=== PATIENT | female | born 1960 | race Caucasian/White ===

== ENCOUNTER → 2017-04-23 | Outpatient (CLI) | payer MEDICARE, OTHER ==
[2017-04-23 09:30] LABS: ALANINE AMINOTRANSFERASE 40 U/L (9-52); ALBUMIN 3.8 g/dL (3.5-5.0); ALKALINE PHOSPHATASE 72 U/L (38-126); ASPARTATE AMINO TRANSFERASE 18 U/L (14-36); BILIRUBIN,DIRECT 0.3 mg/dL (0.0-0.4); BILIRUBIN,TOTAL 0.5 mg/dL (0.2-1.3); CHOLESTEROL 106.41 mg/dL (0-200); Direct HDL 29 mg/dL (>40); TOTAL PROTEIN 6.3 g/dL (6.3-8.2); TRIGLYCERIDES 121 mg/dL (<150)
[2017-04-23 09:42] LABS: DIRECT LDL 41 mg/dL (<100)
== END ==
LOC: OD 08:09
PROVIDERS: ATTEND Specialist
DX: I10 Essential (primary) hypertension (principal); R07.1 Chest pain on breathing; R42 Dizziness and giddiness; R60.9 Edema, unspecified; E11.9 Type 2 diabetes mellitus without complications; E78.5 Hyperlipidemia, unspecified; E66.9 Obesity, unspecified; E03.9 Hypothyroidism, unspecified; G47.30 Sleep apnea, unspecified; K21.9 Gastro-esophageal reflux disease without esophagitis; R94.31 Abnormal electrocardiogram [ECG] [EKG]; Z79.899 Other long term (current) drug therapy
CPT/HCPCS: 36415; 80061; 80076

== ENCOUNTER → 2018-01-31 | Outpatient (CLI) | payer MEDICARE, OTHER ==
--- NOTE | 2018-01-31 16:22 | RADIOLOGY REPORT (SQ) ---
EXAM DESCRIPTION: CT CHEST WITH COMPLETED DATE/TIME: 01/31/2018 3:33 pm REASON FOR STUDY: R07.9 CHEST PAIN R10.9 UNSPECIFIED ABDOMINAL PAIN R07.9 CHEST PAIN, UNSPECIFIED R 10.9 UNSPECIFIED ABDOMINAL PAIN COMPARISON: 07/27/2016 TECHNIQUE: CT scan of the chest performed using helical scanning technique with dynamic intravenous contrast injection. Images reviewed with lung, soft tissue and bone windows. Reconstructed coronal and sagittal MPR images reviewed. All images stored on PACS. All CT scanners at this facility use dose modulation, iterative reconstruction, and/or weight based d osing when appropriate to reduce radiation dose to as low as reasonably achievable (ALARA). [facility]: Dose Right [facility]: CareDose [facility]: Dose Right [facility]: Teradose 4D [facility]: [employer] CONTRAST TYPE AND DOSE: See separate report of the same date. RENAL FUNCTION: See separate report of the same date. RADIATION DOSE: . LIMITATIONS: None. FINDINGS: LUNGS AND PLEURA: No opacities, nodules, masses. No pneumothorax. No effusions. HILAR AND MEDIASTINAL STRUCTURES: No identified masses or abnormal nodes. HEART AND VASCULAR STRUCTURES: No aneurysm or dissection. No central pulmonary emboli. No pericardi al effusion. HARDWARE: None in the chest. UPPER ABDOMEN: See separate report of the CT of the abdomen. THYROID AND OTHER SOFT TISSUES: No masses. No adenopathy. BONES: No significant finding. OTHER: Right-sided port with tip in the SVC. IMPRESSION: No acute findings in the chest. TECHNICAL DOCUMENTATION: JOB ID: [id number] Quality ID # [id number]: Final reports with documentation of one or more dose reduction techniques (e.g., Au tomated exposure control, adjustment of the mA and/or kV according to patient size, use of iterative reconstruction technique) 2010 [employer]- All Rights Reserved Reading location - IP/workstation name: [email or web address]
--- NOTE | 2018-01-31 16:30 | RADIOLOGY REPORT (SQ) ---
EXAM DESCRIPTION: CT ABD/PELVIS WITH IV ORAL COMPLETED DATE/TIME: 01/31/2018 3:33 pm REASON FOR STUDY: R07.9 CHEST PAIN R07.9 CHEST PAIN, UNSPECIFIED R10.9 UNSPECIFIED ABDOMINAL PAIN COMPARISON: 07/02/2015 TECHNIQUE: CT scan of the abdomen and pelvis performed with intravenous and oral contrast using bj gregoria scanning technique with dynamic intravenous contrast injection. Images reviewed with lung, soft t issue, and bone windows. Reconstructed coronal and sagittal MPR images reviewed. Delayed images for e valuation of the urinary system also acquired. All images stored on PACS. All CT scanners at this facility use dose modulation, iterative reconstruction, and/or weight based d osing when appropriate to reduce radiation dose to as low as reasonably achievable (ALARA). [facility]: Dose Right [facility]: CareDose [facility]: Dose Right [facility]: Teradose 4D [facility]: [employer] CONTRAST TYPE AND DOSE: contrast/concentration: Isovue 370.00 mg/ml; Total Contrast Delivered: 100.0 ml; Total Saline Delivered: 72.0 ml RENAL FUNCTION: BUN 22 creatinine 0.9 RADIATION DOSE: CT Rad equipment meets quality standard of care and radiation dose reduction techniq ues were employed. CTDIvol: 13.5 - 23.6 mGy. DLP: 2915 mGy-cm. . LIMITATIONS: None. FINDINGS: LOWER CHEST: See separate report of the CT of the chest. LIVER: Normal size. No masses. No dilated ducts. SPLEEN: Surgically absent. PANCREAS: Partial pancreatectomy. GALLBLADDER: No identified stones by CT criteria. No inflammatory changes to suggest cholecystitis. ADRENAL GLANDS: Left adrenalectomy. Stable soft tissue in the surgical bed. RIGHT KIDNEY AND URETER: No solid masses. No significant calcifications. No hydronephrosis or hyd roureter. LEFT KIDNEY AND URETER: Surgically absent. AORTA AND VESSELS: No aneurysm. RETROPERITONEUM: No retroperitoneal adenopathy, hemorrhage or masses. BOWEL AND PERITONEAL CAVITY: No obstruction. No visualized masses. No free fluid. No inflammatory ch anges or thickening of bowel wall. APPENDIX: Normal. PELVIS: No significant masses. Normal bladder. No free fluid. ABDOMINAL WALL: Ventral hernia containing nondilated bowel. BONES: No acute findings. OTHER: No other significant finding. IMPRESSION: Stable appearance of the abdomen and pelvis. No evidence of local recurrence or metasta tic disease. TECHNICAL DOCUMENTATION: JOB ID: [id number] Quality ID # [id number]: Final reports with documentation of one or more dose reduction techniques (e.g., Au tomated exposure control, adjustment of the mA and/or kV according to patient size, use of iterative reconstruction technique) 2010 [employer]- All Rights Reserved Reading location - IP/workstation name: [email or web address]
== END ==
LOC: RAD 15:38
PROVIDERS: ATTEND Internal Medicine Medical Oncology
DX: R07.9 Chest pain, unspecified (principal); R10.9 Unspecified abdominal pain
CPT/HCPCS: 71260; 74177

== ENCOUNTER → 2018-02-04 | Outpatient (CLI) | payer MEDICARE, OTHER ==
--- NOTE | 2018-02-04 15:18 | RADIOLOGY REPORT (SQ) ---
EXAM DESCRIPTION: NM WHOLE BODY BONE SCAN COMPLETED DATE/TIME: 02/04/2018 2:49 pm REASON FOR STUDY: CHEST PAIN, UNSPECIFIED R07.9 CHEST PAIN, UNSPECIFIED COMPARISON: 07/05/2015 RADIONUCLIDE AND DOSE: 16.9 millicuries Tc99m MDP. The route of agent administration: Intravenous. ADDITIONAL DRUGS AND DOSES: None. TECHNIQUE: Routine delayed images at 3 hour post radionuclide injection acquired of the bony skeleto n including anterior and posterior whole-body projections and additional focused images as needed. LIMITATIONS: None. FINDINGS: BONES: There is increased uptake T9 vertebral body posteriorly. This corresponds to the l ytic lesion which was seen as far back as June 2015 when the bone scan was normal. No other signif icant uptake. KIDNEYS: Symmetric excretion without obstruction. OTHER: No other significant finding. IMPRESSION: Increased uptake within a chronic T9 lytic lesion previously negative on bone scan. Unc ertain if this represents a new metastasis versus pathologic microfracture. There has been very ning le morphologic change since 2014. COMMENT: Quality measure 147: Current bone scan is compared with any available plain radiographs, p rior bone scans, and CT/MRI. TECHNICAL DOCUMENTATION: JOB ID: [id number] [employer]- All Rights Reserved Reading location - IP/workstation name: [email or web address]
== END ==
LOC: RAD 07:59
PROVIDERS: ATTEND Internal Medicine Medical Oncology
DX: R07.9 Chest pain, unspecified (principal); R10.9 Unspecified abdominal pain
CPT/HCPCS: 78306; A9561; Q9969

== ENCOUNTER → 2018-02-08 | Outpatient (CLI) | payer MEDICARE, OTHER ==
--- NOTE | 2018-02-08 11:33 | WOMENS IMAGING REPORT ---
EXAM DESCRIPTION: BONE DENSITY HIP/SPINE COMPLETED DATE/TIME: 02/08/2018 10:20 am REASON FOR STUDY: AGE-RELATED OSTEOPOROSIS; M81.0 M81.0 AGE-RELATED OSTEOPOROSIS W/O CURRENT PATHOL OGICAL FRAC COMPARISON: 05/10/2009. TECHNIQUE: Dual-Energy X-ray Absorptiometry (DEXA) of the AP Spine and Hip. LIMITATIONS: None. FINDINGS: LUMBAR SPINE: The bone mineral density (BMD) measured from L1-L4 in the AP projection correlates with a T-score of -1.6, which is osteopenia as defined by the World Health Organization. HIP: The bone mineral density (BMD) measured in the left hip correlates with a T-score of -1.0, which is o steopenia as defined by the World Health Organization. IMPRESSION: 1. LUMBAR SPINE: OSTEOPENIA. 2. HIP: OSTEOPENIA. COMMENT: The World Health Organization defines low BMD as follows: T-score: Normal: Greater than -1.0 Osteopenia: Between -1.0 and -2.5 Osteoporosis: Less than -2.5 without fractures Established osteoporosis: Less than -2.5 with fractures In general, you may wish to consider: Diagnosis Treatment Follow-up DEXA Normal BMD Prevention 2-3 years Osteopenia Prevention/Therapy 1-2 years Osteoporosis Therapy Yearly TECHNICAL DOCUMENTATION: JOB ID: [id number]- All Rights Reserved Reading location - IP/workstation name: [email or web address]-RR
== END ==
LOC: WI 10:01
PROVIDERS: ATTEND Internal Medicine Medical Oncology
DX: M81.0 Age-related osteoporosis without current pathological fracture (principal)
CPT/HCPCS: 77080

== ENCOUNTER → 2018-02-22 | Outpatient (CLI) | payer MEDICARE, OTHER ==
--- NOTE | 2018-02-22 09:53 | RADIOLOGY REPORT (SQ) ---
EXAM DESCRIPTION: MRI THORACIC SPINE WITHOUT COMPLETED DATE/TIME: 02/22/2018 9:00 am REASON FOR STUDY: OTHER FX OF UNSPEC THORACIC VERTEBRA (S22.008S) S22.008S OTHER FRACTURE OF UNSPEC IFIED THORACIC VERTEBRA, SE COMPARISON: 02/04/[address] chest 01/31/2018. TECHNIQUE: Sagittal and Axial imaging includes T1, T2, STIR and gradient echo sequences. LIMITATIONS: None. FINDINGS: ALIGNMENT: Normal. VERTEBRAE: Abnormal T9 vertebral body, see below. Maintained vertebral heights throughout. No compr ession fracture, including at T9. BONE MARROW: Abnormal signal at T9. T2 sequences show mild edema. T1 sequences show expansile lesio ns within the vertebral body and likely extending into the right pedicle. Minimal endplate reactive marrow edema along the T7-8 degenerated disc. Numerous additional Schmorl's nodes are present, most of which show no edema. Slight edema in an upper T11 Schmorl's node. HARDWARE: None in the spine. CORD: Normal in size and signal intensity. SOFT TISSUES: No soft tissue masses. THORACIC DISCS T1-T12: Multilevel disc disease, height loss and diminished signal with non acute appe aring Schmorl's nodes generally. Small protrusion at T7-8 without mass effect on the cord. Mild dis c osteophyte complex at T11-12 without cord compression. No significant central or foraminal comprom ise. LOWER CERVICAL: Incompletely imaged. No significant spinal stenosis or exit foraminal stenosis. UPPER LUMBAR: Incompletely imaged. No significant spinal stenosis or exit foraminal stenosis. OTHER: No other significant finding. IMPRESSION: As seen on other imaging, T9 is abnormal. The appearance is worrisome for isolated osse ous metastatic disease. No suggestion of superimposed fracture. TECHNICAL DOCUMENTATION: JOB ID: [id number] [employer]- All Rights Reserved Reading location - IP/workstation name: [email or web address]
== END ==
LOC: RAD 08:13
PROVIDERS: ATTEND Physician Assistant
DX: S22.008S Other fracture of unspecified thoracic vertebra, sequela (principal); X58.XXXS Exposure to other specified factors, sequela
CPT/HCPCS: 72146

== ENCOUNTER → 2018-02-24 | Outpatient (CLI) | payer MEDICARE, OTHER ==
[2018-02-24 13:11] LABS: APPEARANCE,URINE CLEAR; BILIRUBIN,URINE NEGATIVE (NEGATIVE); COLOR,URINE STRAW; GLUCOSE, URINE NEGATIVE (NEGATIVE); KETONES,URINE NEGATIVE (NEGATIVE); URINE SPECIFIC GRAVITY 1.008
[2018-02-24 13:12] LABS: LEUKOCYTE ESTERASE,URINE NEGATIVE (NEGATIVE); NITRITE,URINE NEGATIVE (NEGATIVE); PROTEIN,URINE NEGATIVE (NEGATIVE); UROBILINOGEN,URINE NEGATIVE mg/dL (<2.0)
[2018-02-24 13:17] LABS: ABSOLUTE BASOPHILS # (AUTO) 0.1 10^3/uL (0.0-0.2); ABSOLUTE EOSINOPHILS # (AUTO) 0.3 10^3/uL (0.0-0.6); ABSOLUTE LYMPHOCYTES (AUTO) 2.4 10^3/uL (0.5-4.7); ABSOLUTE MONOCYTES (AUTO) 0.9 10^3/uL (0.1-1.4); ABSOLUTE NEUT (AUTO) 5.5 10^3/uL (1.7-8.2); BASOPHILS % (AUTO) 0.9 % (0-2); EOSINOPHILS % (AUTO) 3.2 % (0-6); HEMATOCRIT 40.3 % (36.0-47.0); HEMOGLOBIN 13.4 g/dL (12.0-15.5); LYMPHOCYTES % (AUTO) 26.5 % (13-45); MEAN CORPUSCULAR HGB CONC 33.3 g/dL (32.0-36.0); MEAN CORPUSCULAR VOLUME 93 fl (80-97); MONOCYTES % (AUTO) 9.3 % (3-13); PLATELET COUNT 278 10^3/uL (150-450); RED BLOOD COUNT 4.32 10^6/uL (3.72-5.28); RED CELL DISTRIBUTION WIDTH 14.4 % (11.5-14.0); SEGMENTED NEUTROPHILS % (AUTO) 60.1 % (42-78); TOTAL CELLS COUNTED % (AUTO) 100 %; WHITE BLOOD COUNT 9.2 10^3/uL (4.0-10.5)
[2018-02-24 13:26] LABS: PARTIAL THROMBOPLASTIN TIME 34.4 SEC (23.5-35.8); PROTHROMBIN TIME 12.8 SEC (11.4-15.4)
== END ==
LOC: OD 12:07
PROVIDERS: ATTEND Student in an Organized Health Care Education/Training Program
DX: Z51.81 Encounter for therapeutic drug level monitoring (principal); Z79.01 Long term (current) use of anticoagulants; Z79.899 Other long term (current) drug therapy
CPT/HCPCS: 36415; 81001; 85025; 85610; 85730

== ENCOUNTER → 2018-06-12 | Outpatient (CLI) | payer MEDICARE, OTHER ==
--- NOTE | 2018-06-13 09:51 | RADIOLOGY REPORT (SQ) ---
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 TECHNIQUE: Blood glucose level was verified. Above dose of FDG was injected intravenously. 2-D seg mented attenuation correction images were obtained from the base of the skull to the midthighs. Nonc ontrast CT images were obtained for attenuation correction and fusion with emission images. CT image s were performed without oral or intravenous contrast and are not sensitive for parenchymal lesions. A series of overlapping emission PET images were obtained. Images reviewed and manipulated at [facility] work station by the radiologist. Images stored on PACS. LIMITATIONS: None. FINDINGS: HEAD AND NECK: No areas of abnormal metabolic activity in the soft tissues of the head and neck. CHEST: No areas of abnormal metabolic activity in the chest. ABDOMEN AND PELVIS: No areas of abnormal metabolic activity in the abdomen or pelvis. Expected physi ologic activity is present in the genitourinary system and bowel. PROXIMAL LOWER EXTREMITIES: No areas of abnormal metabolic activity in the soft tissues of the lower extremities. BONES: At the T9 level, there is a hypermetabolic rim of tumor within the vertebral body itself, surr ounding the kyphoplasty bone cement. This increased metabolic activity has SUV of 6.0. ADDITIONAL CT FINDINGS: Right permanent central line tip superior vena cava. Moderate cardiomegaly. Left adrenalectomy, nephrectomy, splenectomy. OTHER: Liver background activity 2.7 SUV. Blood pool background activity 2.0 SUV IMPRESSION: T9 kyphoplasty. There is hypermetabolic marrow signal around the periphery of the bone cement within the T9 vertebral body worrisome for tumor. TECHNICAL DOCUMENTATION: JOB ID: [id number]- All Rights Reserved Reading location - IP/workstation name: [facility]-RR
== END ==
LOC: RAD 15:22
PROVIDERS: ATTEND Internal Medicine Medical Oncology
DX: C74.92 Malignant neoplasm of unspecified part of left adrenal gland (principal)
CPT/HCPCS: 78815; A9552

== ENCOUNTER → 2018-12-06 | Outpatient (CLI) | payer MEDICARE, OTHER ==
--- NOTE | 2018-12-06 13:51 | RADIOLOGY REPORT (SQ) ---
EXAM DESCRIPTION: CT CHEST WITH COMPLETED DATE/TIME: 12/06/2018 10:34 am REASON FOR STUDY: MALIGNANT NEOPLASM OF UNSPEC PART OF LEFT ADRENAL GLAND (C74.92) C74.92 MALIGNANT NEOPLASM OF UNSPECIFIED PART OF LEFT ADRENAL COMPARISON: 01/31/2018. TECHNIQUE: CT scan of the chest performed using helical scanning technique with dynamic intravenous contrast injection. Images reviewed with lung, soft tissue and bone windows. Reconstructed coronal and sagittal MPR and MIP images reviewed. All images stored on PACS. All CT scanners at this facility use dose modulation, iterative reconstruction, and/or weight based d osing when appropriate to reduce radiation dose to as low as reasonably achievable (ALARA). [facility]: Dose Right [facility]: CareDose [facility]: Dose Right [facility]: Teradose 4D [facility]: [email or web address] CONTRAST TYPE AND DOSE: 97 Omnipaque 300- low osmolar. RENAL FUNCTION: Creatinine 0.9. RADIATION DOSE: . LIMITATIONS: None. FINDINGS: LUNGS AND PLEURA: No opacities, nodules, masses. No pneumothorax. No effusions. HILAR AND MEDIASTINAL STRUCTURES: No identified masses or abnormal nodes. HEART AND VASCULAR STRUCTURES: No aneurysm or dissection. No central pulmonary emboli. No pericardi al effusion. HARDWARE: Vascular port. UPPER ABDOMEN: See separate report of the CT of the abdomen. THYROID AND OTHER SOFT TISSUES: No masses. No adenopathy. BONES: Chronic changes in the spine. Sclerotic appearance of the T9 vertebral body with with kyphopl asty cement. OTHER: No other significant finding. IMPRESSION: 1. CHRONIC CHANGES IN THE SPINE. SCLEROTIC APPEARANCE OF THE T9 VERTEBRAL BODY WITH INTERVAL KYPHOPL ASTY. 2. NO OTHER SIGNIFICANT FINDINGS. TECHNICAL DOCUMENTATION: JOB ID: [id number] Quality ID # 436: Final reports with documentation of one or more dose reduction techniques (e.g., Au tomated exposure control, adjustment of the mA and/or kV according to patient size, use of iterative reconstruction technique) 2010 [employer]- All Rights Reserved Reading location - IP/workstation name: [email or web address]
--- NOTE | 2018-12-06 14:01 | RADIOLOGY REPORT (SQ) ---
EXAM DESCRIPTION: CT ABDOMEN IV CONTRAST ONLY COMPLETED DATE/TIME: 12/06/2018 10:34 am REASON FOR STUDY: MALIGNANT NEOPLASM OF UNSPEC PART OF LEFT ADRENAL GLAND (C74.92) C74.92 MALIGNANT NEOPLASM OF UNSPECIFIED PART OF LEFT ADRENA COMPARISON: 01/31/2018 and 07/27/2016. TECHNIQUE: CT scan of the abdomen performed with intravenous and without oral contrast using helical scanning technique with dynamic intravenous contrast injection. Images reviewed with lung, soft tiss ue, and bone windows. Reconstructed coronal and sagittal MPR images reviewed. Delayed images for eval uation of the urinary system also acquired and evaluated. All images stored on PACS. All CT scanners at this facility use dose modulation, iterative reconstruc tion, and/or weight based dosing when appropriate to reduce radiation dose to as low as reasonably ac hievable (ALARA). [facility]: Dose Right [facility]: CareDose [facility]: Dose Right [facility]: Teradose 4D [facility]: [employer] CONTRAST TYPE AND DOSE: contrast/concentration: Isovue 300.00 mg/ml; Total Contrast Delivered: 97.0 ml; Total Saline Delivered: 72.0 ml RENAL FUNCTION: Creatinine 0.9. RADIATION DOSE: CT Rad equipment meets quality standard of care and radiation dose reduction techniq ues were employed. CTDIvol: 12.2 - 22.0 mGy. DLP: 1869 mGy-cm. . LIMITATIONS: None. FINDINGS: LOWER CHEST: No significant findings. No nodules or infiltrates. LIVER: Normal size. No masses. No dilated ducts. SPLEEN: Post splenectomy. PANCREAS: Atrophic appearance. Previous partial pancreatectomy. Residual pancreatic tissue in the h ead and uncinate process unremarkable. GALLBLADDER: No identified stones by CT criteria. No inflammatory changes to suggest cholecystitis. ADRENAL GLANDS: Left adrenal gland surgically absent. Right and growing gland unremarkable. RIGHT KIDNEY AND URETER: No solid masses. No significant calcifications. No hydronephrosis or hyd roureter. LEFT KIDNEY AND URETER: Post nephrectomy. AORTA AND VESSELS: No aneurysm. No dissection. Renal arteries, SMA, celiac without stenosis. RETROPERITONEUM: No retroperitoneal adenopathy, hemorrhage or masses. BOWEL AND PERITONEAL CAVITY: No masses or inflammatory changes. No free fluid or peritoneal masses. APPENDIX: Normal. ABDOMINAL WALL: No masses. No hernias. BONES: No significant or acute findings. OTHER: No other significant finding. IMPRESSION: STABLE CT OF THE ABDOMEN WITH INTRAVENOUS CONTRAST. STABLE SURGICAL CHANGES. NO EVIDEN CE OF RESIDUAL OR RECURRENT TUMOR OR METASTATIC LESIONS. TECHNICAL DOCUMENTATION: JOB ID: [id number] Quality ID # 436: Final reports with documentation of one or more dose reduction techniques (e.g., Au tomated exposure control, adjustment of the mA and/or kV according to patient size, use of iterative reconstruction technique) 2010 [employer]- All Rights Reserved Reading location - IP/workstation name: [facility]
== END ==
LOC: RAD 09:41
PROVIDERS: ATTEND Internal Medicine Medical Oncology
DX: C74.92 Malignant neoplasm of unspecified part of left adrenal gland (principal)
CPT/HCPCS: 71260; 74160; 82565

== ENCOUNTER → 2019-07-12 | Outpatient (CLI) | payer MEDICARE, OTHER ==
--- NOTE | 2019-07-12 12:58 | RADIOLOGY REPORT (SQ) ---
EXAM DESCRIPTION: CT CHEST WITH COMPLETED DATE/TIME: 07/12/2019 9:54 am REASON FOR STUDY: (C74.90)MALIGNANT NEOPLASM OF UNSP PART OF UNSPECIFIED ADRENAL GLAND C74.90 LORNA BONE NEOPLASM OF UNSP PART OF UNSPECIFIED ADRENAL C79.51 SECONDARY MALIGNANT NEOPLASM OF BONE COMPARISON: 12/06/2018 TECHNIQUE: CT scan of the chest performed using helical scanning technique with dynamic intravenous contrast injection. Images reviewed with lung, soft tissue and bone windows. Reconstructed coronal and sagittal MPR and MIP images reviewed. All images stored on PACS. All CT scanners at this facility use dose modulation, iterative reconstruction, and/or weight based d osing when appropriate to reduce radiation dose to as low as reasonably achievable (ALARA). [facility]: Dose Right [facility]: CareDose [facility]: Dose Right [facility]: Teradose 4D [facility]: [employer] CONTRAST TYPE AND DOSE: 100 mL Omnipaque 350- low osmolar. RENAL FUNCTION: Creatinine 0.8 RADIATION DOSE: . LIMITATIONS: None. FINDINGS: LUNGS AND PLEURA: There is minimal opacification in the medial aspect of the right lower l obe. No masses are seen. No pleural effusion. HILAR AND MEDIASTINAL STRUCTURES: No identified masses or abnormal nodes. HEART AND VASCULAR STRUCTURES: No aneurysm or dissection. No central pulmonary emboli. No pericardi al effusion. HARDWARE: Injection port on the right. UPPER ABDOMEN: See separate report of the CT of the abdomen. THYROID AND OTHER SOFT TISSUES: No masses. No adenopathy. BONES: Kyphoplasty at T9 OTHER: No other significant finding. IMPRESSION: NORMAL CT OF THE CHEST WITH IV CONTRAST. TECHNICAL DOCUMENTATION: JOB ID: [id number] Quality ID # 436: Final reports with documentation of one or more dose reduction techniques (e.g., Au tomated exposure control, adjustment of the mA and/or kV according to patient size, use of iterative reconstruction technique) 2010 [employer]- All Rights Reserved Reading location - IP/workstation name: [email or web address]
--- NOTE | 2019-07-12 13:21 | RADIOLOGY REPORT (SQ) ---
EXAM DESCRIPTION: CT ABDOMEN IV CONTRAST ONLY COMPLETED DATE/TIME: 07/12/2019 9:51 am REASON FOR STUDY: (C74.90)MALIGNANT NEOPLASM OF UNSP PART OF UNSPECIFIED ADRENAL GLAND C74.90 LORNA BONE NEOPLASM OF UNSP PART OF UNSPECIFIED ADRENAL C79.51 SECONDARY MALIGNANT NEOPLASM OF BONE COMPARISON: 12/06/2018 TECHNIQUE: CT scan of the abdomen performed with intravenous and without oral contrast using helical scanning technique with dynamic intravenous contrast injection. Images reviewed with lung, soft tiss ue, and bone windows. Reconstructed coronal and sagittal MPR images reviewed. Delayed images for eval uation of the urinary system also acquired and evaluated. All images stored on PACS. All CT scanners at this facility use dose modulation, iterative reconstruc tion, and/or weight based dosing when appropriate to reduce radiation dose to as low as reasonably ac hievable (ALARA). [facility]: Dose Right [facility]: CareDose [facility]: Dose Right [facility]: Teradose 4D [facility]: [employer] CONTRAST TYPE AND DOSE: contrast/concentration: Isovue 350.00 mg/ml; Total Contrast Delivered: 100.0 ml; Total Saline Delivered: 72.0 ml RENAL FUNCTION: Creatinine 0.8 RADIATION DOSE: CT Rad equipment meets quality standard of care and radiation dose reduction techniq ues were employed. CTDIvol: 9.0 - 16.2 mGy. DLP: 1369 mGy-cm. . LIMITATIONS: None. FINDINGS: LOWER CHEST: See separate report of the CT of the chest. LIVER: Normal size. No masses. No dilated ducts. SPLEEN: Surgically absent. PANCREAS: Partial pancreatectomy. There is some residual pancreatic tissue in the head and neck of t he pancreas. GALLBLADDER: No identified stones by CT criteria. No inflammatory changes to suggest cholecystitis. ADRENAL GLANDS: The left adrenal gland has been removed. The right is normal. RIGHT KIDNEY AND URETER: No solid masses. No significant calcifications. No hydronephrosis or hyd roureter. LEFT KIDNEY AND URETER: Surgically absent. AORTA AND VESSELS: No aneurysm. No dissection. Renal arteries, SMA, celiac without stenosis. RETROPERITONEUM: There is mild mesenteric adenopathy. There is haziness in the mesentery. This is u nchanged. BOWEL AND PERITONEAL CAVITY: No masses or inflammatory changes. No free fluid or peritoneal masses. APPENDIX: Not included. ABDOMINAL WALL: No masses. No hernias. BONES: No significant or acute findings. OTHER: No other significant finding. IMPRESSION: Surgical changes. There is mild mesenteric adenopathy. There is haziness in the mesent amilcar. This is nonspecific finding that can indicate inflammation, edema, tumor infiltration, fibrosis . There is no significant interval change. TECHNICAL DOCUMENTATION: JOB ID: [id number] Quality ID # 436: Final reports with documentation of one or more dose reduction techniques (e.g., Au tomated exposure control, adjustment of the mA and/or kV according to patient size, use of iterative reconstruction technique) 2010 [employer]- All Rights Reserved Reading location - IP/workstation name: [email or web address]
== END ==
LOC: RAD 09:20
PROVIDERS: ATTEND Internal Medicine Medical Oncology
DX: C74.90 Malignant neoplasm of unspecified part of unspecified adrenal gland (principal); C79.51 Secondary malignant neoplasm of bone
CPT/HCPCS: 71260; 74160; 82565

== ENCOUNTER 2020-05-24 20:45 | Inpatient (IN) | payer MEDICARE, OTHER ==
[2020-05-24 21:25] LABS: VENOUS BLOOD BASE EXCESS -1.6 mmol/L; VENOUS BLOOD HCO3 23.2 mmol/L (20-32); VENOUS BLOOD PCO2 39.5 mmHg (35-63); VENOUS BLOOD PH 7.39 (7.30-7.42)
[2020-05-24 21:35] LABS: ABSOLUTE LYMPHOCYTES (AUTO) 0.7 10^3/uL (0.5-4.7); ABSOLUTE NEUT (AUTO) 0.1 10^3/uL (1.7-8.2); BASOPHILS % (AUTO) 0.6 % (0-2); EOSINOPHILS % (AUTO) 3.8 % (0-6); HEMATOCRIT 22.8 % (36.0-47.0); LYMPHOCYTES % (AUTO) 84.2 % (13-45); MEAN CORPUSCULAR HEMOGLOBIN 32.7 pg (27.0-33.4); MEAN CORPUSCULAR HGB CONC 34.4 g/dL (32.0-36.0); MEAN CORPUSCULAR VOLUME 95 fl (80-97); MONOCYTES % (AUTO) 3.4 % (3-13); RED CELL DISTRIBUTION WIDTH 12.5 % (11.5-14.0); TOTAL CELLS COUNTED % (AUTO) 100 %
[2020-05-24 21:37] LABS: APPEARANCE,URINE SLIGHTLY-CLOUDY; BILIRUBIN,URINE NEGATIVE (NEGATIVE); COLOR,URINE AMBER; GLUCOSE, URINE NEGATIVE (NEGATIVE); KETONES,URINE NEGATIVE (NEGATIVE); PROTEIN,URINE 30 mg/dL (NEGATIVE); URINE SPECIFIC GRAVITY 1.018
[2020-05-24 21:38] LABS: ALBUMIN 3.4 g/dL (3.5-5.0); ALKALINE PHOSPHATASE 103 U/L (38-126); ANION GAP 10 (5-19); ASPARTATE AMINO TRANSFERASE 26 U/L (14-36); BILIRUBIN,DIRECT 0.2 mg/dL (0.0-0.4); BILIRUBIN,TOTAL 1.2 mg/dL (0.2-1.3); BLOOD UREA NITROGEN 40 mg/dL (7-20); CALCIUM 9.5 mg/dL (8.4-10.2); CARBON DIOXIDE 22 mmol/L (22-30); CHLORIDE 100 mmol/L (98-107); GLUCOSE 138 mg/dL (75-110); POTASSIUM 4.4 mmol/L (3.6-5.0); TOTAL PROTEIN 6.5 g/dL (6.3-8.2)
[2020-05-24 21:50] LABS: INTERNATIONAL RATION (INR) 0.98
[2020-05-24 22:01] LABS: WHITE BLOOD COUNT 0.8 10^3/uL (4.0-10.5)
[2020-05-24 22:02] LABS: HEMOGLOBIN 7.9 g/dL (12.0-15.5); PLATELET COUNT 26 10^3/uL (150-450)
--- NOTE | 2020-05-24 22:02 | ER Document Report ---
ED General - General Chief Complaint: Altered Mental Status Stated Complaint: FALL Time Seen by Provider: 05/24/20 21:20 Primary Care Provider: BRIANDA HESS MD [Primary Care Provider] - Follow up as needed TRAVEL OUTSIDE OF THE [place] IN LAST 30 DAYS: No - HPI Notes: Patient is a 59-year-old female brought into the emergency department for evaluation. Evidently initially EMS was called secondary to fall. She fell to her knees. She was weak, trying to go to the bathroom. On arrival they found she had a temperature of 100.2, blood pressure in the 90s, and was tachycardic. A sepsis alert was called. Patient received IV fluids and was brought here to the emergency department for further evaluation. The patient denies any pain for me, but she is a very poor historian. When I ask her questions in regards to her medical history, any issues she has had as of late, she states "my sisters should be here somewhere." I spoke to her sister, who states she has been slightly more confused over the last several days. She is been complaining of abdominal pain. She has just been getting progressively weaker. She received her last chemotherapy a few weeks ago, she is due for her next round of chemotherapy on May 30. - Related Data Allergies/Adverse Reactions: aspirin [Aspirin] Allergy (Unknown, Verified 05/24/20 21:28) clindamycin [Clindamycin] Allergy (Unknown, Verified 05/24/20 21:28) fluoxetine [Fluoxetine] Allergy (Unknown, Verified 05/24/20 21:28) hydrochlorothiazide [Hydrochlorothiazide] Allergy (Unknown, Verified 05/24/20 21:28) nitrofurantoin [From Macrobid] Allergy (Unknown, Verified 05/24/20 21:28) oxycodone HCl [From Percocet] Allergy (Unknown, Verified 05/24/20 21:28) Home Medications: per home list Past Medical History - General Information source: Patient, Emergency Med Personnel - Social History Smoking Status: Never Smoker Family History: DM, Hypertension Patient has homicidal ideation: No - na - Past Medical History Cardiac Medical History: Reports: Hx Hypercholesterolemia, Hx Hypertension Denies: Hx Coronary Artery Disease, Hx Heart Attack Pulmonary Medical History: Denies: Hx Asthma, Hx Bronchitis, Hx COPD, Hx Pneumonia Neurological Medical History: Reports: Hx Seizures. Denies: Hx Cerebrovascular Accident Malignancy Medical History: Reports: Other - Pheochromocytoma GI Medical History: Reports: Hx Gastroesophageal Reflux Disease Musculoskeletal Medical History: Denies Hx Arthritis Past Surgical History: Reports: Hx Abdominal Surgery - Left nephrectomy, Other - Kyphoplasty. Denies: Hx Hysterectomy - Immunizations Hx Diphtheria, Pertussis, Tetanus Vaccination: No - unsure Review of Systems - Review of Systems -: Yes ROS unobtainable due to patient's medical condition - Documented review of systems as per sister, not patient Constitutional: See HPI Gastrointestinal: See HPI Neurological/Psychological: See HPI -: Yes All other systems reviewed and negative Physical Exam - Vital signs Vitals: Temp Pulse Resp BP Pulse Ox 99.2 F 97 24 H 126/66 H 96 05/24/20 20:45 05/24/20 20:45 05/24/20 20:45 05/24/20 20:45 05/24/20 20:45 - Notes Notes: This is a pale 59-year-old female who appears her stated age. She is lying in the bed, intermittently moaning and tachypneic. She can sometimes answer questions appropriately, otherwise just seems agitated. Head is normocephalic and appears atraumatic, pupils are equal and round, reactive to light. Conjunc tive are pink. Oral mucosa is dry. Heart is mildly tachycardic with normal S1, S2. Lungs are clear to auscultation bilaterally. Abdomen soft, nontender, normoactive bowel sounds. Extremities without cyanosis, clubbing. Posterior calves are nontender. Skin is warm and dry. Patient is awake and alert. She is oriented to place, disoriented to time. She moves all 4 extremities spontaneously. She has no gross facial asymmetry. She is some difficulty answering questions and following commands. Course - Re-evaluation Re-evalutation: 05/24/20 22:06 Patient presents to the emergency department for evaluation. She had laboratory investigations as ordered per sepsis protocol. She received a liter and the field. I will order a second, which will fulfill a 30 cc/kg bolus as per sepsis protocol. She is afebrile here. Awaiting lab results, patient is stable, we will continue to monitor. 05/24/20 23:37 Patient's laboratory investigation reveals neutropenic fever. She developed a temperature of 101. She is given Tylenol. On further questioning, patient becomes agitated, keeps referring me back to her sisters. I did speak with her sister, Irish Lerma. She was able to tell me the family history of diabetes a nd hypertension. She states that she is unsure of when her last bowel movement was. She was complaining of some abdominal pain earlier in the week. The patient did fall when trying to go to the bathroom, did not strike her head. There was no known loss of consciousness. She really have not been coughing or having any other acute complaints per sister. 05/24/20 23:42 Once it was noted that patient was status post nephrectomy, another liter of LR at 200 an hour was ordered, as the patient did receive a full IV contrast dose. 05/25/20 00:[address] Tinoco. He agrees with rapid COVID testing prior to placement of the patient. Still awaiting this, otherwise patient will be accepted to [facility] [place]. - Vital Signs Vital signs: Temp Pulse Resp BP Pulse Ox 101.1 F H 97 23 H 131/66 H 96 05/24/20 22:46 05/24/20 20:45 05/25/20 00:00 05/25/20 00:00 05/25/20 00:00 - Laboratory Result Diagrams: 05/24/20 20:50 05/24/20 20:50 Laboratory results interpreted by me: 05/24/20 05/24/20 05/24/20 20:50 20:50 20:50 WBC 0.8 L* RBC 2.40 L Hgb 7.9 L Hct 22.8 L Plt Count 26 L* Lymph % (Auto) 84.2 H Absolute Neuts (auto) 0.1 L Absolute Monos (auto) 0.0 L Seg Neutrophils % 8.0 L Sodium 131.9 L BUN 40 H Est GFR (MDRD) Non-Af 52 L Glucose 138 H Lactic Acid 3.3 H Albumin 3.4 L Urine Protein Urine Urobilinogen Crossmatch 05/24/20 05/24/20 20:50 22:28 WBC RBC Hgb Hct Plt Count Lymph % (Auto) Absolute Neuts (auto) Absolute Monos (auto) Seg Neutrophils % Sodium BUN Est GFR (MDRD) Non-Af Glucose Lactic Acid Albumin Urine Protein 30 H Urine Urobilinogen 4.0 H Crossmatch See Detail - Diagnostic Test Radiology reviewed: Reports reviewed Radiology results interpreted by me: 05/24/20 23:41 Abdomen/Pelvis CT 05/24/20 22:14 IMPRESSION: Constipation with extensive left upper quadrant postoperative changes. No convincing abscess. Chest x-ray, interpreted by myself without the aid of a radiologist, reveals no acute cardiopulmonary disease. - EKG Interpretation by Me Additional EKG results interpreted by me: 05/24/20 23:42 Sinus mechanism with a rate of 99 bpm, PVCs and PACs noted. Large baseline artifact. Nonspecific ST changes, but no obvious ST elevation. No old studies available for comparison. Discharge - Discharge Clinical Impression: Neutropenic fever, Pancytopenia, Hyponatremia Pheochromocytoma Qualifiers: Laterality: unspecified laterality Qualified Code(s): D35.00 - Benign neoplasm of unspecified adrenal gland Condition: Stable Disposition: ADMITTED INPATIENT Admitting Provider: Alejandrina (Hospitalist) Unit Admitted: IMCU Referrals: BRIANDA HESS MD [Primary Care Provider] - Follow up as needed
[2020-05-24 22:03] LABS: BURR CELLS SLIGHT; OVALOCYTES SLIGHT; PLATELET COMMENT DECREASED; POIKILOCYTOSIS SLIGHT
[2020-05-24] MEDS ORDERED: NORMAL SALINE 250 ML IV PRN ×2 (22:07)
[2020-05-24] MEDS ORDERED: CEFEPIME 2 GM/D5W RTU 2 GM/50 ML RTUPB IV ONE (22:07)
[2020-05-24] MEDS ORDERED: VANCOMYCIN HCL INJ 1000 MG VIAL IV ONE (22:07)
[2020-05-24] MEDS ORDERED: RINGERS SOLUTION,LACTATED 1,000 ML IV ONE ×2 (23:14→23:22)
[2020-05-24] MEDS ORDERED: ACETAMINOPHEN 325 MG TABLET PO ONE (23:27)
--- NOTE | 2020-05-24 23:34 | RADIOLOGY REPORT (SQ) ---
CLINICAL HISTORY: Neutropenic fever, abdominal pain COMPARISON: 07/12/2019. TECHNIQUE: CT ABDOMEN PELVIS WITH IV CONTRAST on 05/24/2020 10:14 PM CDT This exam was performed according to our departmental dose-optimization program, which includes automated exposure control, adjustment of the mA and/or kV according to patient size and/or use of iterative reconstruction technique. FINDINGS: There is bibasilar atelectasis. Abdomen: The liver is normal in appearance. There is no biliary dilatation. Gallbladder is decompressed. Stomach is fluid filled. Spleen is absent. Pancreas is poorly seen and is likely atrophic. Right kidney and right adrenal gland are unremarkable. Left kidney is absent. Left adrenal gland is not well seen. Abdominal aorta is normal in course and caliber without aneurysm. There is no free air. There is no retroperitoneal adenopathy. Pelvis: There is large amount of stool throughout the colon. Urinary bladder is unremarkable. There is no free fluid. Uterus is poorly seen as well. Appendix is not clearly seen. Skeleton: There are no acute osseous findings. No suspicious bony lesions. IMPRESSION: Constipation with extensive left upper quadrant postoperative changes. No convincing abscess.
[2020-05-25] MEDS ORDERED: LORAZEPAM INJ 2 MG/1 ML VIAL IV PRN (02:18)
[2020-05-25] MEDS ORDERED: GUAIFENESIN SYRP 200 MG/10 ML UDC PO PRN (02:18)
[2020-05-25] MEDS ORDERED: PROMETHAZINE HCL INJ 25 MG/1 ML VIAL IV PRN (02:18)
[2020-05-25] MEDS ORDERED: ACETAMINOPHEN 650 MG SUPP.RECT PR PRN (02:18)
[2020-05-25] MEDS ORDERED: MORPHINE SULFATE 10 MG/ML INJ IV PRN ×4 (02:18→02:43)
[2020-05-25] MEDS ORDERED: MAG HYDROX/AL HYDROX/SIMETH SUSP 30 ML UDCUP PO PRN (02:18)
[2020-05-25] MEDS ORDERED: MAGNESIUM HYDROXIDE SUSP 30 ML UDCUP PO PRN (02:18)
[2020-05-25] MEDS ORDERED: MELATONIN 5 MG TABLET PO PRN (02:18)
[2020-05-25] MEDS ORDERED: DEXTROSE 40% GEL 15 GM TUBE PO PRN ×2 (02:19)
[2020-05-25] MEDS ORDERED: DEXTROSE 50%-WATER 25 GM/50 ML DISP.SYRIN IV PRN ×2 (02:19)
[2020-05-25] MEDS ORDERED: GLUCAGON,HUMAN RECOMB 1 MG INJ IM PRN (02:19)
[2020-05-25] MEDS: INSULIN REG, HUMAN 100 UNIT/ML 3 ML VIAL (PYX) SUBCUT SCH ×5 (03:22→21:33)
--- NOTE | 2020-05-25 03:52 | PDOC H&P ---
History of Present Illness Admission Date/PCP: 05/25/20 00:19 BRIANDA HESS MD Patient complains of: Altered mental status History of Present Illness: ROBERTO LECHUGA is a 59 year old female who presented to the emergency room via EMS with a 3-day history of altered mental status. The patient is confused and unable to contribute reliable information to her medical history. Her sister related that she has been gradually becoming more confused over the course of the last 3 days. Her confusion has been accompanied by gradually worsening weakness and generalized malaise and has been associated with intermittent abdominal pains. Her sister denied other associated or accompanying signs and symptoms. The patient has pheochromocytoma and finished her most recent chemotherapy regiment 2 to 3 weeks ago and is scheduled for another round of chemotherapy given a on May 30. Upon EMS arrival they discovered the patient to have a temperature of 100.2 F, a systolic blood pressure in the 90s and a tachycardia. She was treated per sepsis protocol during her transport to the hospital. In the emergency room she was found to have a elevated lactic acid at 3.3 and was noted to have pancytopenia with a severe neutropenia. Patient was subsequently admitted in the IMCU. Past Medical History Past Medical History: Patient is unable to provide meaningful historical input therefore her past medical history, past surgical history, social history and family history obtained from the best available reliable source. Cardiac Medical History: Reports: Hyperlipidema, Hypertension Denies: Atrial Fibrillation, Coronary Artery Disease, Myocardial Infarction Pulmonary Medical History: Denies: Asthma, Bronchitis, Chronic Obstructive Pulmonary Disease (COPD), Pneumonia EENT Medical History: Denies: Cataracts, Ears - Hearing aids Neurological Medical History: Reports: Seizures Denies: Hemorrhagic CVA, Ischemic CVA Endocrine Medical History: Reports: Diabetes Mellitus Type 2, Hypothyroidism Denies: Diabetes Mellitus Type 1, Hyperthyroidism Malignancy Medical History: Reports: Other - Pheochromocytoma GI Medical History: Reports: Gastroesophageal Reflux Disease Denies: Cirrhosis, Crohn's Disease, Hepatitis, Peptic Ulcer Disease, Ulcerative Colitis Musculoskeltal Medical History: Denies: Arthritis, Gout Skin Medical History: Denies: Eczema, Psoriasis Psychiatric Medical History: Denies: Alcohol Dependency, Substance Abuse, Tobacco Dependency Traumatic Medical History: Reports: None Hematology: Denies: Anemia, Bleeding Tendencies Infectious Medical History: Reports: None Past Surgical History Past Surgical History: Patient is unable to provide meaningful historical input therefore her past medical history, past surgical history, social history and family history obtained from the best available reliable source. Past Surgical History: Reports: Other - Kyphoplasty, left nephrectomy Social History Information Source: Relative, Emergency Med Personnel, [facility] Records Lives with: Family Smoking Status: Never Smoker Electronic Cigarette use?: No Frequency of Alcohol Use: None Hx Recreational Drug Use: No Drugs: None Hx Prescription Drug Abuse: No Past Social History Note: Patient is unable to provide meaningful historical input therefore her past medical history, past surgical history, social history and family history obtained from the best available reliable source. - Advance Directive Resuscitation Status: Full Code Surrogate healthcare decision maker:: Deonna Lechuga Family History Family History: DM, Hypertension Family History: Patient is unable to provide meaningful historical input therefore her past medical history, past surgical history, social history and family history obtained from the best available reliable source. Parental Family History Reviewed: Yes Children Family History Reviewed: No Sibling(s) Family History Reviewed.: Yes Medication/Allergy Home Medications: Calcium Carbonate/Vitamin D3 [Calcium 600-Vit D3 200 Tablet] 1 each PO DAILY 07/09/13 Fexofenadine HCl [Michelle] 180 mg PO DAILY 07/09/13 Levothyroxine Sodium [Synthroid] 125 mcg PO DAILY 07/09/13 Multivitamin [Multi-Vitamin Daily] 1 each PO DAILY 07/09/13 Blood Sugar Diagnostic [Freestyle Lite Test Strips] 1 [facility] ACHS #1 [facility] 07/21/13 Blood-Glucose Meter [Freestyle Insulinx] 1 unit ASDIR PRN #1 unit 07/21/13 Metformin HCl 2 tab PO DAILY 09/02/15 Amlodipine Besylate [Norvasc 2.5 mg Tablet] 2.5 mg PO DAILY 02/28/18 Ascorbic Acid 500 mg PO DAILY 02/28/18 Dicyclomine HCl 20 mg PO QID 02/28/18 Ferrous Sulfate 325 mg PO DAILY 02/28/18 Furosemide 20 mg PO DAILY 02/28/18 Pantoprazole Sodium [Protonix] 40 mg PO DAILY 02/28/18 Phenoxybenzamine HCl [Dibenzyline 10 Mg Capsule] 10 mg PO BID 02/28/18 Celecoxib [Celebrex 100 mg Capsule] 100 mg PO DAILYP PRN 05/24/20 Morphine Sulfate [Morphine Ir 15 Mg Tablet] 15 mg PO Q6HP PRN 05/24/20 Simvastatin 5 mg PO QHS 05/24/20 Allergies/Adverse Reactions: aspirin [Aspirin] Allergy (Unknown, Verified 05/24/20 21:28) clindamycin [Clindamycin] Allergy (Unknown, Verified 05/24/20 21:28) fluoxetine [Fluoxetine] Allergy (Unknown, Verified 05/24/20 21:28) hydrochlorothiazide [Hydrochlorothiazide] Allergy (Unknown, Verified 05/24/20 21:28) nitrofurantoin [From Macrobid] Allergy (Unknown, Verified 05/24/20 21:28) oxycodone HCl [From Percocet] Allergy (Unknown, Verified 05/24/20 21:28) Review of Systems ROS unobtainable: Due to mental status - Patient with altered mental status (confusion) Physical Exam Vital Signs: Temp Pulse Resp BP Pulse Ox 98.2 F 97 18 142/72 H 94 05/25/20 01:15 05/24/20 20:45 05/25/20 01:15 05/25/20 01:15 05/25/20 01:15 Intake & Output 05/23/20 05/24/20 05/25/20 23:59 23:59 23:59 Intake Total 50 1000 Output Total 300 Balance 50 700 Weight 65.8 kg General appearance: PRESENT: no acute distress, cooperative, other - Confused Head exam: PRESENT: atraumatic, normocephalic Eye exam: PRESENT: conjunctiva pink. ABSENT: conjunctival injection, scleral icterus Ear exam: PRESENT: normal external ear exam. ABSENT: bleeding, drainage Mouth exam: PRESENT: dry mucosa, neck supple Neck exam: ABSENT: thyromegaly, tracheal deviation Respiratory exam: PRESENT: clear to auscultation mikal, symmetrical, unlabored Cardiovascular exam: PRESENT: RRR, tachycardia. ABSENT: clicks, gallop, rubs Pulses: PRESENT: normal radial pulses, normal dorsalis pedis pul Vascular exam: PRESENT: normal capillary refill. ABSENT: pallor GI/Abdominal exam: PRESENT: normal bowel sounds, soft Rectal exam: PRESENT: deferred Extremities exam: ABSENT: joint swelling, pedal edema Musculoskeletal exam: ABSENT: deformity, dislocation Neurological exam: PRESENT: altered - Confused, poorly oriented Psychiatric exam: PRESENT: anxious, other - Confused Focused psych exam: PRESENT: restlessness Skin exam: PRESENT: dry, intact, warm. ABSENT: jaundice, rash, urticaria Results Laboratory Results: 05/24/20 20:50 05/24/20 20:50 05/24/20 05/24/20 05/24/20 20:50 20:50 20:50 WBC 0.8 L* RBC 2.40 L Hgb 7.9 L Hct 22.8 L MCV 95 MCH 32.7 MCHC 34.4 RDW 12.5 Plt Count 26 L* Seg Neutrophils % 8.0 L VBG pH 7.39 VBG pCO2 39.5 VBG HCO3 23.2 VBG Base Excess -1.6 Sodium 131.9 L Potassium 4.4 Chloride 100 Carbon Dioxide 22 Anion Gap 10 BUN 40 H Creatinine 1.07 Est GFR ( Amer) > 60 Glucose 138 H Lactic Acid Calcium 9.5 Total Bilirubin 1.2 AST 26 Alkaline Phosphatase 103 Total Protein 6.5 Albumin 3.4 L Urine Color Urine Appearance Urine pH Ur Specific Barto Urine Protein Urine Glucose (UA) Urine Ketones Urine Blood Urine RBC (Auto) Blood Type Antibody Screen 05/24/20 05/24/20 05/24/20 20:50 20:50 22:28 WBC RBC Hgb Hct MCV MCH MCHC RDW Plt Count Seg Neutrophils % VBG pH VBG pCO2 VBG HCO3 VBG Base Excess Sodium Potassium Chloride Carbon Dioxide Anion Gap BUN Creatinine Est GFR ( Amer) Glucose Lactic Acid 3.3 H Calcium Total Bilirubin AST Alkaline Phosphatase Total Protein Albumin Urine Color DAPHNE Urine Appearance SLIGHTLY-CLOUDY Urine pH 5.0 Ur Specific Barto 1.018 Urine Protein 30 H Urine Glucose (UA) NEGATIVE Urine Ketones NEGATIVE Urine Blood NEGATIVE Urine RBC (Auto) 2 Blood Type O POSITIVE Antibody Screen NEGATIVE 05/25/20 00:30 WBC RBC Hgb Hct MCV MCH MCHC RDW Plt Count Seg Neutrophils % VBG pH VBG pCO2 VBG HCO3 VBG Base Excess Sodium Potassium Chloride Carbon Dioxide Anion Gap BUN Creatinine Est GFR ( Amer) Glucose Lactic Acid 3.0 H Calcium Total Bilirubin AST Alkaline Phosphatase Total Protein Albumin Urine Color Urine Appearance Urine pH Ur Specific Barto Urine Protein Urine Glucose (UA) Urine Ketones Urine Blood Urine RBC (Auto) Blood Type Antibody Screen Impressions: Abdomen/Pelvis CT 05/24/20 22:14 IMPRESSION: Constipation with extensive left upper quadrant postoperative changes. No convincing abscess. Assessment and Plan - Diagnosis (1) Neutropenic fever Is this a current diagnosis for this admission?: Yes (2) Pheochromocytoma Qualifiers: Laterality: left Qualified Code(s): D35.02 - Benign neoplasm of left adrenal gland Is this a current diagnosis for this admission?: Yes (3) Pancytopenia Is this a current diagnosis for this admission?: Yes (4) Hyponatremia Is this a current diagnosis for this admission?: Yes (5) Constipation Qualifiers: Constipation type: unspecified constipation type Qualified Code(s): K59.00 - Constipation, unspecified Is this a current diagnosis for this admission?: Yes (6) Diabetes mellitus type 2 in nonobese Is this a current diagnosis for this admission?: Yes (7) Hypothyroidism Qualifiers: Hypothyroidism type: unspecified Qualified Code(s): E03.9 - Hypothyroidism, unspecified Is this a current diagnosis for this admission?: Yes - Plan Summary Summary: Patient will be admitted to the [facility] where she will receive routine supportive and symptomatic cares. She will be given IV fluids utilizing lactated Ringer's solution at 167 mL/h initially. She will be treated with IV antibiotics utilizing cefepime and Zosyn. Serial lactic acid levels will be performed. Dr. Bianchi will be consulted for oncology. Patient will receive Ativan 1 mg IV every 4 hours as needed for anxiety or restlessness. She will be treated with a cardiac and diabetic restricted diet. Before meals and at bedtime Accu-Cheks will be performed with sliding scale insulin for hyperglycemia and a hypoglycemic protocol in place. Patient's usual medications will be resumed, as appropriate, once her medication list has been verified and reconciled. CBCs, metabolic profiles, magnesium levels and additional laboratory and/or radiographic evaluations will be obtained as appropriate. - Time Time Spent with patient: Less than 15 minutes Medications reviewed and adjusted accordingly: Yes Anticipated discharge: Home, Home with Homehealth - Inpatient Certification Based on my medical assessment, after consideration of the patient's comorbidities, presenting symptoms, or acuity I expect that the services needed warrant INPATIENT care.: Yes I certify that my determination is in accordance with my understanding of Medicare's requirements for reasonable and necessary INPATIENT services [42 CFR 412.3e].: Yes Medical Necessity: Significant Comorbidiites Make Outpatient Treatment Too Ri jens, Need Close Monitoring Due to Risk of Patient Decompensation, Need For IV Fluids, Need For Continuous Telemetry Monitoring, Need for IV Antibiotics, Risk of Complication if Not Cared For in Hospital
[2020-05-25 05:08] LABS: APPEARANCE,URINE CLEAR; BILIRUBIN,URINE NEGATIVE (NEGATIVE); COLOR,URINE YELLOW; GLUCOSE, URINE NEGATIVE (NEGATIVE); KETONES,URINE NEGATIVE (NEGATIVE); PROTEIN,URINE 30 mg/dL (NEGATIVE); URINE SPECIFIC GRAVITY 1.028; UROBILINOGEN,URINE NEGATIVE mg/dL (<2.0)
[2020-05-25] MEDS ORDERED: LINEZOLID 600 MG/300 ML RTUPB IV ONE (05:33)
[2020-05-25] MEDS ORDERED: LEVOTHYROXINE SODIUM 0.05 MG TABLET PO SCH (06:00)
[2020-05-25] MEDS ORDERED: LINEZOLID 600 MG/300 ML RTUPB IV SCH (06:00)
--- NOTE | 2020-05-25 09:50 | RADIOLOGY REPORT (SQ) ---
EXAM DESCRIPTION: CHEST SINGLE VIEW IMAGES COMPLETED DATE/TIME: 05/24/2020 9:29 pm REASON FOR STUDY: reported fever, AMS COMPARISON: 07/17/2013 FINDINGS: One-view chest AP portable semi-upright. Right port in place. Lungs are clear with normal cardiomediastinal silhouette. Intact bones. No acute cardiopulmonary di sease. TECHNICAL DOCUMENTATION: JOB ID: [id number] Reading location - IP/workstation name: [email or web address]
[2020-05-25] MEDS ORDERED: CEFEPIME 2 GM/D5W RTU 2 GM/50 ML RTUPB IV SCH (10:00)
[2020-05-25 10:24] LABS: HEMATOCRIT 31.6 % (36.0-47.0); MEAN CORPUSCULAR HEMOGLOBIN 31.2 pg (27.0-33.4); RED BLOOD COUNT 3.55 10^6/uL (3.72-5.28); RED CELL DISTRIBUTION WIDTH 13.5 % (11.5-14.0)
[2020-05-25 10:29] LABS: HEMOGLOBIN 11.1 g/dL (12.0-15.5); MEAN CORPUSCULAR VOLUME 89 fl (80-97)
[2020-05-25] MEDS: DOCUSATE SODIUM 100 MG CAPSULE PO SCH ×2 (10:39→17:50)
[2020-05-25] MEDS: FAMOTIDINE 20 MG TABLET PO SCH ×2 (10:39→21:32)
[2020-05-25] MEDS: METFORMIN HCL 500 MG TABLET PO SCH ×2 (10:39→15:48)
[2020-05-25] MEDS: ASCORBIC ACID 500 MG TABLET PO SCH (10:39)
[2020-05-25] MEDS: FERROUS SULFATE 325 MG TABLET PO SCH (10:39)
[2020-05-25] MEDS: MULTIVITAMIN TABLET PO SCH (10:39)
[2020-05-25] MEDS: PANTOPRAZOLE SODIUM 40 MG PACKET.DR PO SCH (10:39)
[2020-05-25] MEDS: CEFEPIME HCL 2 GM in DEXTROSE 5%-WATER 50 ML IV SCH ×2 (10:40→21:36)
[2020-05-25 11:03] LABS: PLATELET COUNT 10 10^3/uL (150-450); WHITE BLOOD COUNT 0.7 10^3/uL (4.0-10.5)
[2020-05-25] MEDS ORDERED: NORMAL SALINE 250 ML IV PRN ×2 (12:01)
--- NOTE | 2020-05-25 12:12 | PDOC CONSULTATION ---
Consultation Consult Date: 05/25/20 Attending physician:: BRIANDA HESS Provider Consulted: ROSALBA RAMÍREZ Consult reason:: Hematology, Oncology consultation was requested for patient with neutropenic fever, pancytopenia, on active treatment for metastatic cancer. History of Present Illness Admission Date/PCP: 05/25/20 00:19 BRIANDA HESS MD History of Present Illness: ROBERTO LECHUGA is a 59 year old female with a learning disability who has been under the care of Dr. Thomas in [facility] for quite some time. She was diagnosed with metastatic pheochromocytoma many years ago. She has undergone radiation therapy in the past. Recently, her symptoms of weight loss and sweating have worsened and she was started on a chemotherapy regimen including adriamycin, vinblastine, etc. Since that time, her blood counts have dropped. She presented to the ED after a fall and was found to have fever with neutropenia. COVID testing was negative and she was started on Cefapime and Zyvox. Family states that she was also started on morphine for abdominal pain and since that time has been more confused. Today, she states that she has a headache and chest/epigastric pain. She is asking for coffee, but does not answer any of my other questions, including if she would like sugar in her coffee. She states that she cannot feel her legs, but withdraws appropriately to light touch on the bottom of her feet. Nurses report that she has been pleasant this morning. No concerns except blood counts. Past Medical History Cardiac Medical History: Reports: Hyperlipidema, Hypertension Denies: Atrial Fibrillation, Coronary Artery Disease, Myocardial Infarction Pulmonary Medical History: Denies: Asthma, Bronchitis, Chronic Obstructive Pulmonary Disease (COPD), Pneumonia EENT Medical History: Denies: Cataracts, Ears - Hearing aids Neurological Medical History: Reports: Seizures Denies: Hemorrhagic CVA, Ischemic CVA Endocrine Medical History: Reports: Diabetes Mellitus Type 2, Hypothyroidism Denies: Diabetes Mellitus Type 1, Hyperthyroidism Malignancy Medical History: Reports: Other - Pheochromocytoma GI Medical History: Reports: Gastroesophageal Reflux Disease Denies: Cirrhosis, Crohn's Disease, Hepatitis, Peptic Ulcer Disease, Ulcerative Colitis Musculoskeltal Medical History: Denies: Arthritis, Gout Skin Medical History: Denies: Eczema, Psoriasis Psychiatric Medical History: Denies: Alcohol Dependency, Depression, Substance Abuse, Tobacco Dependency Traumatic Medical History: Reports: None Hematology: Denies: Anemia, Bleeding Tendencies Infectious Medical History: Reports: None Past Surgical History Past Surgical History: Reports: Other - Kyphoplasty, left nephrectomy Denies: Hysterectomy Social History Lives with: Family Smoking Status: Never Smoker Electronic Cigarette use?: No Frequency of Alcohol Use: None Hx Recreational Drug Use: No Drugs: None Hx Prescription Drug Abuse: No Past Social History Note: She lives with her mother and her sister. She is disabled and has no children. No smoking. - Advance Directive Resuscitation Status: Full Code Family History Family History: DM, Hypertension Parental Family History Reviewed: Yes - Patient is not able to answer Children Family History Reviewed: NA Sibling(s) Family History Reviewed.: No Medication/Allergy Home Medications: Calcium Carbonate/Vitamin D3 [Calcium 600-Vit D3 200 Tablet] 1 each PO DAILY 07/09/13 Fexofenadine HCl [Michelle] 180 mg PO DAILY 07/09/13 Multivitamin [Multi-Vitamin Daily] 1 each PO DAILY 07/09/13 Ascorbic Acid 500 mg PO DAILY 02/28/18 Dicyclomine HCl 20 mg PO QID 02/28/18 Ferrous Sulfate 325 mg PO DAILY 02/28/18 Furosemide 20 mg PO DAILYP PRN 02/28/18 Pantoprazole Sodium [Protonix] 40 mg PO DAILY 02/28/18 Morphine Sulfate [Morphine Ir 15 Mg Tablet] 15 mg PO Q6HP PRN 05/24/20 Simvastatin 5 mg PO DAILY 05/24/20 Buprenorphine [Butrans] 10 mcg TD SHAFFER@1000 05/25/20 Levothyroxine Sodium [Synthroid 0.088 mg Tablet] 0.088 mg PO DAILY 05/25/20 Lisinopril [Prinivil] 5 mg PO DAILY 05/25/20 Metformin HCl [Metformin HCl ER] 1,000 mg PO Q12 05/25/20 Ondansetron HCl [Zofran 8 mg Tablet] 8 mg PO Q8HP PRN 05/25/20 Prochlorperazine Maleate [Compazine 10 mg Tablet] 20 mg PO Q6HP PRN 05/25/20 Sucralfate [Carafate 1 gm Tablet] 1 gm PO ACHS 05/25/20 Allergies/Adverse Reactions: aspirin [Aspirin] Allergy (Unknown, Verified 05/24/20 21:28) clindamycin [Clindamycin] Allergy (Unknown, Verified 05/24/20 21:28) fluoxetine [Fluoxetine] Allergy (Unknown, Verified 05/24/20 21:28) hydrochlorothiazide [Hydrochlorothiazide] Allergy (Unknown, Verified 05/24/20 21:28) nitrofurantoin [From Macrobid] Allergy (Unknown, Verified 05/24/20 21:28) oxycodone HCl [From Percocet] Allergy (Unknown, Verified 05/24/20 21:28) Review of Systems ROS unobtainable: Due to mental status Physical Exam Vital Signs: Temp Pulse Resp BP Pulse Ox 97.5 F 83 16 164/73 H 94 05/25/20 07:44 05/25/20 07:44 05/25/20 07:44 05/25/20 07:44 05/25/20 07:44 Intake & Output 05/24/20 05/25/20 05/26/20 06:59 06:59 06:59 Intake Total 2607 350 Output Total 300 Balance 2307 350 Weight 69.4 kg General appearance: PRESENT: no acute distress, well-developed, well-nourished Exam: 59 year old female. Eye exam: PRESENT: EOMI Mouth exam: PRESENT: moist, tongue midline Teeth exam: PRESENT: poor dentation Neck exam: PRESENT: full ROM. ABSENT: lymphadenopathy, tenderness Respiratory exam: PRESENT: clear to auscultation mikal, unlabored Cardiovascular exam: PRESENT: irregular rhythm GI/Abdominal exam: PRESENT: soft, tenderness - RUQ Extremities exam: ABSENT: pedal edema Musculoskeletal exam: PRESENT: normal inspection Neurological exam: PRESENT: awake. ABSENT: oriented to person, oriented to place, oriented to time, oriented to situation Psychiatric exam: PRESENT: appropriate affect Skin exam: PRESENT: normal color Results Laboratory Results: 05/25/20 09:36 05/24/20 20:50 05/24/20 05/24/20 05/24/20 20:50 20:50 20:50 WBC 0.8 L* RBC 2.40 L Hgb 7.9 L Hct 22.8 L MCV 95 MCH 32.7 MCHC 34.4 RDW 12.5 Plt Count 26 L* Seg Neutrophils % 8.0 L VBG pH 7.39 VBG pCO2 39.5 VBG HCO3 23.2 VBG Base Excess -1.6 Sodium 131.9 L Potassium 4.4 Chloride 100 Carbon Dioxide 22 Anion Gap 10 BUN 40 H Creatinine 1.07 Est GFR ( Amer) > 60 Glucose 138 H Lactic Acid Calcium 9.5 Total Bilirubin 1.2 AST 26 Alkaline Phosphatase 103 Total Protein 6.5 Albumin 3.4 L Free T3 pg/mL Urine Color Urine Appearance Urine pH Ur Specific [place] Urine Protein Urine Glucose (UA) Urine Ketones Urine Blood Urine RBC (Auto) Blood Type Antibody Screen 05/24/20 05/24/20 05/24/20 20:50 20:50 22:28 WBC RBC Hgb Hct MCV MCH MCHC RDW Plt Count Seg Neutrophils % VBG pH VBG pCO2 VBG HCO3 VBG Base Excess Sodium Potassium Chloride Carbon Dioxide Anion Gap BUN Creatinine Est GFR ( Amer) Glucose Lactic Acid 3.3 H Calcium Total Bilirubin AST Alkaline Phosphatase Total Protein Albumin Free T3 pg/mL Urine Color DAPHNE Urine Appearance SLIGHTLY-CLOUDY Urine pH 5.0 Ur Specific [place] 1.018 Urine Protein 30 H Urine Glucose (UA) NEGATIVE Urine Ketones NEGATIVE Urine Blood NEGATIVE Urine RBC (Auto) 2 Blood Type O POSITIVE Antibody Screen NEGATIVE 05/25/20 05/25/20 05/25/20 00:30 03:50 04:35 WBC RBC Hgb Hct MCV MCH MCHC RDW Plt Count Seg Neutrophils % VBG pH VBG pCO2 VBG HCO3 VBG Base Excess Sodium Potassium Chloride Carbon Dioxide Anion Gap BUN Creatinine Est GFR ( Amer) Glucose Lactic Acid 3.0 H 1.7 Calcium Total Bilirubin AST Alkaline Phosphatase Total Protein Albumin Free T3 pg/mL Urine Color YELLOW Urine Appearance CLEAR Urine pH 5.0 Ur Specific [place] 1.028 Urine Protein 30 H Urine Glucose (UA) NEGATIVE Urine Ketones NEGATIVE Urine Blood NEGATIVE Urine RBC (Auto) 1 Blood Type Antibody Screen 05/25/20 05/25/20 05/25/20 07:10 07:10 09:36 WBC 0.7 L* RBC 3.55 L Hgb 11.1 L D Hct 31.6 L MCV 89 D MCH 31.2 MCHC 35.0 RDW 13.5 Plt Count 10 L* D Seg Neutrophils % VBG pH VBG pCO2 VBG HCO3 VBG Base Excess Sodium Potassium Chloride Carbon Dioxide Anion Gap BUN Creatinine Est GFR ( Amer) Glucose Lactic Acid 1.3 Calcium Total Bilirubin AST Alkaline Phosphatase Total Protein Albumin Free T3 pg/mL 1.57 L Urine Color Urine Appearance Urine pH Ur Specific [place] Urine Protein Urine Glucose (UA) Urine Ketones Urine Blood Urine RBC (Auto) Blood Type Antibody Screen Impressions: Abdomen/Pelvis CT 05/24/20 22:14 IMPRESSION: Constipation with extensive left upper quadrant postoperative changes. No convincing abscess. Status: Image reviewed by me Assessment & Plan - Diagnosis (1) Constipation Qualifiers: Constipation type: unspecified constipation type Qualified Code(s): K59.00 - Constipation, unspecified Is this a current diagnosis for this admission?: Yes Plan: She was started on Colace. I believe her abdominal pain is most likely due to the constipation. Morphine may cause this to become even worse. I would stop all morphine. This may also be contributing to her confusion. (2) Hyponatremia Is this a current diagnosis for this admission?: Yes Plan: NS ordered. Will follow and use free water restriction as indicated. This may be due to her underlying cancer. (3) Neutropenic fever Is this a current diagnosis for this admission?: Yes Plan: On appropriate antibiotics. Blood counts should recover within 7-10 days. Await cultures. (4) Pancytopenia Is this a current diagnosis for this admission?: Yes Plan: Transfuse as indicated for HGB <8 or PLT <10. No active bleeding, so may be able to hold off on plt transfusion until tomorrow. (5) Pheochromocytoma Qualifiers: Laterality: left Qualified Code(s): D35.02 - Benign neoplasm of left adrenal gland Is this a current diagnosis for this admission?: Yes Plan: s/p active chemo. She has chronic symptoms of flushing/sweating. This is meta static and all treatment is palliative, not curative. - Plan Summary Plan Summary: I spoke with patient's sister as well as Dr. Hess her primary oncologist.
--- NOTE | 2020-05-25 12:18 | Progress Note ---
Provider Note Provider Note: Patient seen by me will be charts on orders. Adjustments made. Continue IV antibiotics. Patient is slightly drowsy this morning so I will discontinue IV morphine in order to better keep an eye on patient's mental status. We will resume her home morphine IR tablets only as needed. Transfuse 2 bags of platelets as platelets count is 10 this morning. IV normal saline hydration.
[2020-05-25] MEDS: LISINOPRIL 5 MG TABLET PO SCH (12:24)
[2020-05-25] MEDS: NORMAL SALINE 1000 ML 1,000 ML IV PRN ×2 (12:26→21:32)
[2020-05-25] MEDS: MORPHINE SULFATE IR 15 MG TABLET PO PRN (13:59)
[2020-05-25] MEDS: SUCRALFATE 1 GM TABLET PO SCH ×2 (15:48→21:32)
[2020-05-25] MEDS ORDERED: VANCOMYCIN HCL 1,250 MG in DEXTROSE 5%-WATER 250 ML IV ONE (16:00)
[2020-05-25 21:00] LABS: HEMATOCRIT 28.4 % (36.0-47.0); HEMOGLOBIN 10.1 g/dL (12.0-15.5); MEAN CORPUSCULAR HEMOGLOBIN 31.8 pg (27.0-33.4); MEAN CORPUSCULAR HGB CONC 35.4 g/dL (32.0-36.0); MEAN CORPUSCULAR VOLUME 90 fl (80-97); RED BLOOD COUNT 3.16 10^6/uL (3.72-5.28); RED CELL DISTRIBUTION WIDTH 13.6 % (11.5-14.0)
[2020-05-25 21:03] LABS: PLATELET COUNT 145 10^3/uL (150-450)
[2020-05-25 21:04] LABS: WHITE BLOOD COUNT 0.7 10^3/uL (4.0-10.5)
[2020-05-25] MEDS ORDERED: VANCOMYCIN HCL INJ 1000 MG VIAL IV SCH (22:00)
--- NOTE | 2020-05-25 22:08 | EKG REPORT ---
SEVERITY:- ABNORMAL ECG - SINUS TACHYCARDIA BORDERLINE T ABNORMALITIES, DIFFUSE LEADS : Confirmed by: Kim Rivera 25-May-2020 22:08:04
--- NOTE | 2020-05-25 22:08 | EKG REPORT ---
SEVERITY:- ABNORMAL ECG - SINUS RHYTHM BORDERLINE R WAVE PROGRESSION, ANTERIOR LEADS NONSPECIFIC T ABNORMALITIES, INFERIOR LEADS : Confirmed by: Kim Rivera 25-May-2020 22:07:23
[2020-05-25] MEDS: ACETAMINOPHEN 325 MG TABLET PO PRN (23:54)
[2020-05-26 04:47] LABS: INTERNATIONAL RATION (INR) 1.03; PROTHROMBIN TIME 13.5 SEC (11.4-15.4)
[2020-05-26 05:02] LABS: ABSOLUTE LYMPHOCYTES (AUTO) 0.4 10^3/uL (0.5-4.7); HEMATOCRIT 32.4 % (36.0-47.0); HEMOGLOBIN 11.4 g/dL (12.0-15.5); LYMPHOCYTES % (AUTO) 79.4 % (13-45); MEAN CORPUSCULAR HEMOGLOBIN 31.5 pg (27.0-33.4); MEAN CORPUSCULAR VOLUME 90 fl (80-97); MONOCYTES % (AUTO) 2.3 % (3-13); PLATELET COUNT 129 10^3/uL (150-450); RED BLOOD COUNT 3.61 10^6/uL (3.72-5.28); RED CELL DISTRIBUTION WIDTH 13.7 % (11.5-14.0); SEGMENTED NEUTROPHILS % (AUTO) 9.3 % (42-78); TOTAL CELLS COUNTED % (AUTO) 100 %
[2020-05-26 05:04] LABS: ALKALINE PHOSPHATASE 108 U/L (38-126); ANION GAP 7 (5-19); ASPARTATE AMINO TRANSFERASE 26 U/L (14-36); BILIRUBIN,DIRECT 0.3 mg/dL (0.0-0.4); BLOOD UREA NITROGEN 21 mg/dL (7-20); CALCIUM 8.9 mg/dL (8.4-10.2); CARBON DIOXIDE 23 mmol/L (22-30); CHLORIDE 106 mmol/L (98-107); GLUCOSE 151 mg/dL (75-110); POTASSIUM 3.9 mmol/L (3.6-5.0); TOTAL PROTEIN 6.1 g/dL (6.3-8.2)
[2020-05-26 05:08] LABS: WHITE BLOOD COUNT 0.5 10^3/uL (4.0-10.5)
[2020-05-26] MEDS: NORMAL SALINE 1000 ML 1,000 ML IV PRN (05:13)
[2020-05-26] MEDS: LEVOTHYROXINE SODIUM 0.088 MG TABLET PO SCH (05:13)
[2020-05-26 05:19] LABS: BILIRUBIN,TOTAL 1.2 mg/dL (0.2-1.3)
[2020-05-26] MEDS: MAGNESIUM SULFATE 1 GM/D5W 100 ML IV SCH ×2 (05:36→06:43)
[2020-05-26] MEDS ORDERED: VANCOMYCIN HCL 500 MG in DEXTROSE 5%-WATER 100 ML IV SCH (06:00)
[2020-05-26] MEDS: INSULIN REG, HUMAN 100 UNIT/ML 3 ML VIAL (PYX) SUBCUT SCH ×4 (08:37→21:33)
[2020-05-26] MEDS: METFORMIN HCL 500 MG TABLET PO SCH ×2 (08:37→17:13)
[2020-05-26] MEDS: SUCRALFATE 1 GM TABLET PO SCH ×4 (08:37→21:33)
[2020-05-26] MEDS: MULTIVITAMIN TABLET PO SCH (09:34)
[2020-05-26] MEDS: DOCUSATE SODIUM 100 MG CAPSULE PO SCH ×2 (09:34→17:13)
[2020-05-26] MEDS: FAMOTIDINE 20 MG TABLET PO SCH ×2 (09:34→21:33)
[2020-05-26] MEDS: FERROUS SULFATE 325 MG TABLET PO SCH (09:35)
[2020-05-26] MEDS: LISINOPRIL 5 MG TABLET PO SCH (09:35)
[2020-05-26] MEDS: CEFEPIME HCL 2 GM in DEXTROSE 5%-WATER 50 ML IV SCH ×2 (09:35→21:33)
[2020-05-26] MEDS: ASCORBIC ACID 500 MG TABLET PO SCH (09:35)
[2020-05-26] MEDS: MORPHINE SULFATE IR 15 MG TABLET PO PRN (09:39)
[2020-05-26] MEDS: PANTOPRAZOLE SODIUM 40 MG PACKET.DR PO SCH (09:39)
[2020-05-26] MEDS ORDERED: MAGNESIUM SULFATE/D5W 1 GM/100 ML RTUPB IV SCH (10:00)
[2020-05-26] MEDS ORDERED: MAGNESIUM SULFATE INJ 8 MEQ/2 ML IV SCH (10:00)
[2020-05-26] MEDS ORDERED: VANCOMYCIN HCL 500 MG in DEXTROSE 5%-WATER 100 ML IV ONE (10:15)
--- NOTE | 2020-05-26 16:27 | PDOC PROGRESS REPORT ---
Subjective Progress Note for:: 05/26/20 Subjective:: Patient was a bit somnolent yesterday and her IV morphine was stopped in favor of restarting her home oral morphine. She appears primarily comfortable today but states she has some intermittent abdominal pain. Her WBC is still quite low but her platelets have risen since getting 2 units of platelets yesterday. We will need to trend her blood counts to make sure they do not drop further. Magnesium very low and we are repleting this today. Patient has no new c omplaints otherwise. She is continued on IV antibiotics and oncology is following. Reason For Visit: NEUTROPENIC FEVER Physical Exam Vital Signs: Temp Pulse Resp BP Pulse Ox 97.9 F 84 16 131/89 H 96 05/26/20 15:02 05/26/20 15:02 05/26/20 15:02 05/26/20 15:02 05/26/20 15:02 Intake & Output 05/25/20 05/26/20 05/27/20 06:59 06:59 06:59 Intake Total 2607 3669 1150 Output Total 300 3775 200 Balance 2307 -106 950 Weight 69.4 kg 68.1 kg General appearance: PRESENT: no acute distress, well-developed, well-nourished Head exam: PRESENT: atraumatic, normocephalic Eye exam: PRESENT: conjunctiva pink Mouth exam: PRESENT: moist Respiratory exam: PRESENT: clear to auscultation mikal. ABSENT: rales, rhonchi, wheezes Cardiovascular exam: PRESENT: RRR. ABSENT: diastolic murmur, rubs, systolic murmur GI/Abdominal exam: PRESENT: distended, normal bowel sounds, soft, tenderness. ABSENT: guarding, mass, organolmegaly, rebound Rectal exam: PRESENT: deferred Extremities exam: PRESENT: pedal edema Neurological exam: PRESENT: alert, awake, oriented to person, oriented to place Psychiatric exam: PRESENT: appropriate affect Skin exam: PRESENT: dry, intact, warm Results Laboratory Results: 05/26/20 04:29 05/26/20 04:29 05/24/20 05/25/20 05/26/20 22:28 20:45 04:29 WBC 0.7 L* RBC 3.16 L Hgb 10.1 L Hct 28.4 L MCV 90 MCH 31.8 MCHC 35.4 RDW 13.6 Plt Count 145 L D Seg Neutrophils % Sodium 136.3 L Potassium 3.9 Chloride 106 Carbon Dioxide 23 Anion Gap 7 BUN 21 H Creatinine 0.59 Est GFR ( Amer) > 60 Glucose 151 H Calcium 8.9 Magnesium 1.1 L* Total Bilirubin 1.2 AST 26 Alkaline Phosphatase 108 Total Protein 6.1 L Albumin 3.0 L TSH Blood Type O POSITIVE Antibody Screen NEGATIVE 05/26/20 05/26/20 05/26/20 04:29 04:29 09:28 WBC 0.5 L* RBC 3.61 L Hgb 11.4 L Hct 32.4 L MCV 90 MCH 31.5 MCHC 35.0 RDW 13.7 Plt Count 129 L Seg Neutrophils % 9.3 L Sodium Potassium Chloride Carbon Dioxide Anion Gap BUN Creatinine Est GFR ( Amer) Glucose Calcium Magnesium 1.8 Total Bilirubin AST Alkaline Phosphatase Total Protein Albumin TSH 0.32 L Blood Type Antibody Screen Impressions: Abdomen/Pelvis CT 05/24/20 22:14 IMPRESSION: Constipation with extensive left upper quadrant postoperative changes. No convincing abscess. Assessment and Plan - Diagnosis (1) Neutropenic fever Is this a current diagnosis for this admission?: Yes Plan: Pancytopenia on admission Sepsis Empiric vancomycin/cefepime Blood cultures negative so far Unclear source: Urine does not show infection, chest x-ray does not show pneumonia, abdomen/pelvis CT did not show abscess/infection (2) Pancytopenia Is this a current diagnosis for this admission?: Yes Plan: Trend CBC Hematology consulted and actively following Chemotherapy has been held Transfused 2 units platelets on 05/25 (3) Constipation Qualifiers: Constipation type: unspecified constipation type Qualified Code(s): K59.00 - Constipation, unspecified Is this a current diagnosis for this admission?: Yes Plan: Bowel regimen Likely due to chronic narcotics use (4) Diabetes mellitus type 2 in nonobese Is this a current diagnosis for this admission?: Yes Plan: Accu-Cheks, sliding scale insulin (5) Hyponatremia Is this a current diagnosis for this admission?: Yes Plan: Gradual increase in sodium to goal of 130 (6) Hypothyroidism Qualifiers: Hypothyroidism type: unspecified Qualified Code(s): E03.9 - Hypothyroidism, unspecified Is this a current diagnosis for this admission?: Yes (7) Pheochromocytoma Qualifiers: Laterality: left Qualified Code(s): D35.02 - Benign neoplasm of left adrenal gland Is this a current diagnosis for this admission?: Yes Plan: Treatment per oncology - Plan Summary Summary: Patient will be admitted to the [facility] where she will receive routine supportive and symptomatic cares. She will be given IV fluids utilizing lactated Ringer's solution at 167 mL/h initially. She will be treated with IV antibiotics utilizing cefepime and Zosyn. Serial lactic acid levels will be performed. Dr. Bianchi will be consulted for oncology. Patient will receive Ativan 1 mg IV every 4 hours as needed for anxiety or restlessness. She will be treated with a cardiac and diabetic restricted diet. Before meals and at bedtime Accu-Cheks will be performed with sliding scale insulin for hyperglycemia and a hypoglycemic protocol in place. Patient's usual medications will be resumed, as appropriate, once her medication list has been verified and reconciled. CBCs, metabolic profiles, magnesium levels and additional laboratory and/or radiographic evaluations will be obtained as appropriate. - Time Time Spent with patient: 25-34 minutes Medications reviewed and adjusted accordingly: Yes - Inpatient Certification Based on my medical assessment, after consideration of the patient's comor bidities, presenting symptoms, or acuity I expect that the services needed warrant INPATIENT care.: Yes I certify that my determination is in accordance with my understanding of Medicare's requirements for reasonable and necessary INPATIENT services [42 CFR 412.3e].: Yes Medical Necessity: Significant Comorbidiites Make Outpatient Treatment Too Risky, Need Close Monitoring Due to Risk of Patient Decompensation, Need for IV Antibiotics, Risk of Complication if Not Cared For in Hospital, Risk of Diagnosis Which Will Require Inpatient Eval/Care/Monitoring
[2020-05-26] MEDS: VANCOMYCIN HCL 1,000 MG in DEXTROSE 5%-WATER 250 ML IV SCH (17:13)
[2020-05-27] MEDS: LEVOTHYROXINE SODIUM 0.088 MG TABLET PO SCH (05:32)
[2020-05-27] MEDS: VANCOMYCIN HCL 1,000 MG in DEXTROSE 5%-WATER 250 ML IV SCH ×2 (05:33→18:40)
[2020-05-27] MEDS: NORMAL SALINE 1000 ML 1,000 ML IV PRN ×2 (05:34→14:08)
[2020-05-27 07:01] LABS: HEMATOCRIT 31.3 % (36.0-47.0); HEMOGLOBIN 10.9 g/dL (12.0-15.5); MEAN CORPUSCULAR HEMOGLOBIN 31.6 pg (27.0-33.4); MEAN CORPUSCULAR HGB CONC 34.9 g/dL (32.0-36.0); MEAN CORPUSCULAR VOLUME 91 fl (80-97); RED BLOOD COUNT 3.45 10^6/uL (3.72-5.28); RED CELL DISTRIBUTION WIDTH 13.4 % (11.5-14.0)
[2020-05-27 07:32] LABS: ANION GAP 8 (5-19); BLOOD UREA NITROGEN 16 mg/dL (7-20); CALCIUM 8.4 mg/dL (8.4-10.2); CARBON DIOXIDE 22 mmol/L (22-30); CHLORIDE 104 mmol/L (98-107); GLUCOSE 133 mg/dL (75-110); POTASSIUM 3.3 mmol/L (3.6-5.0)
[2020-05-27 08:00] LABS: PLATELET COUNT 95 10^3/uL (150-450)
[2020-05-27 08:01] LABS: WHITE BLOOD COUNT 0.4 10^3/uL (4.0-10.5)
--- NOTE | 2020-05-27 08:11 | PDOC PROGRESS REPORT ---
Subjective Progress Note for:: 05/27/20 Subjective:: Patient without change. Awake and answers some questions, but not conversing. No documented BMs still. She continues on RTC morphine as well as iron without any laxatives. Only colace. Most of her symptoms, according to family started after morphine was started. Reason For Visit: NEUTROPENIC FEVER Physical Exam Vital Signs: Temp Pulse Resp BP Pulse Ox 97.8 F 73 16 152/83 H 98 05/27/20 04:09 05/27/20 07:00 05/27/20 04:09 05/27/20 04:09 05/27/20 04:09 Intake & Output 05/26/20 05/27/20 05/28/20 06:59 06:59 06:59 Intake Total 3669 2240 250 Output Total 3775 1600 Balance -106 640 250 Weight 68.1 kg 68.5 kg General appearance: PRESENT: no acute distress Head exam: PRESENT: normocephalic Respiratory exam: PRESENT: unlabored GI/Abdominal exam: PRESENT: soft, tenderness Extremities exam: ABSENT: pedal edema Neurological exam: PRESENT: altered Psychiatric exam: PRESENT: flat affect Skin exam: PRESENT: pallor Results Laboratory Results: 05/27/20 06:34 05/27/20 06:34 05/26/20 05/27/20 05/27/20 09:28 06:34 06:34 WBC 0.4 L* RBC 3.45 L Hgb 10.9 L Hct 31.3 L MCV 91 MCH 31.6 MCHC 34.9 RDW 13.4 Plt Count 95 L Sodium 133.6 L Potassium 3.3 L Chloride 104 Carbon Dioxide 22 Anion Gap 8 BUN 16 Creatinine 0.62 Est GFR ( Amer) > 60 Glucose 133 H Calcium 8.4 Magnesium 1.8 1.6 Impressions: Abdomen/Pelvis CT 05/24/20 22:14 IMPRESSION: Constipation with extensive left upper quadrant postoperative changes. No convincing abscess. Assessment & Plan - Diagnosis (1) Constipation Qualifiers: Constipation type: unspecified constipation type Qualified Code(s): K59.00 - Constipation, unspecified Is this a current diagnosis for this admission?: Yes Plan: Most likely cause of her abdominal pain. I would start Senna-S 2 tabs BOD while on RTC opiods. I am not sure if she still needs the iron, but would consider stopping that at this point. (2) Hyponatremia Is this a current diagnosis for this admission?: Yes (3) Neutropenic fever Is this a current diagnosis for this admission?: Yes Plan: No fever for 24 hours. Continue antibiotics. All cultures are NGTD. (4) Pancytopenia Is this a current diagnosis for this admission?: Yes Plan: Secondary to chemo. Await count recovery. NO indication for transfusion today. (5) Pheochromocytoma Qualifiers: Laterality: left Qualified Code(s): D35.02 - Benign neoplasm of left adrenal gland Is this a current diagnosis for this admission?: Yes Plan: All chemo on hold currently. - Time Time Spent with patient: 15-24 minutes - Plan Summary Plan Summary: I will continue to follow. Will defer all orders to primary team. Please call me with any concerns.
[2020-05-27] MEDS: METFORMIN HCL 500 MG TABLET PO SCH ×2 (08:44→17:33)
[2020-05-27] MEDS: INSULIN REG, HUMAN 100 UNIT/ML 3 ML VIAL (PYX) SUBCUT SCH ×4 (08:45→23:00)
[2020-05-27] MEDS: SUCRALFATE 1 GM TABLET PO SCH ×4 (08:45→23:00)
[2020-05-27] MEDS: LISINOPRIL 5 MG TABLET PO SCH (10:47)
[2020-05-27] MEDS: MULTIVITAMIN TABLET PO SCH (10:47)
[2020-05-27] MEDS: PANTOPRAZOLE SODIUM 40 MG PACKET.DR PO SCH (10:47)
[2020-05-27] MEDS: DOCUSATE SODIUM 100 MG CAPSULE PO SCH ×2 (10:47→17:33)
[2020-05-27] MEDS: ASCORBIC ACID 500 MG TABLET PO SCH (10:47)
[2020-05-27] MEDS: CEFEPIME HCL 2 GM in DEXTROSE 5%-WATER 50 ML IV SCH ×2 (10:47→23:00)
[2020-05-27] MEDS: FAMOTIDINE 20 MG TABLET PO SCH ×2 (10:47→23:00)
[2020-05-27 11:50] LABS: PATH REVIEW PATHOLOGIST REVIEWED
[2020-05-27] MEDS ORDERED: BISACODYL 5 MG TABEC PO ONE (12:00)
[2020-05-27] MEDS ORDERED: BISACODYL 10 MG SUPP.RECT PR PRN (16:51)
--- NOTE | 2020-05-27 17:06 | PDOC PROGRESS REPORT ---
Subjective Progress Note for:: 05/27/20 Subjective:: 05/26/2020 Patient was a bit somnolent yesterday and her IV morphine was stopped in favor of restarting her home oral morphine. She appears primarily comfortable today but states she has some intermittent abdominal pain. Her WBC is still quite low but her platelets have risen since getting 2 units of platelets yesterday. We will need to trend her blood counts to make sure they do not drop further. Magnesium very low and we are repleting this today. Patient has no new complaints otherwise. She is continued on IV antibiotics and oncology is following. 05/27/2020 Patient seems to be doing much better today, much more alert and interactive. Her abdomen is soft and she seems to be more comfortable. I discussed with nursing to give her oral Dulcolax, followed by rectal Dulcolax if this is ineffective, followed by enema if this is ineffective. Will be working more aggressively to help her have a bowel movement. She is a very poor historian with regards to when her last bowel movement occurred. Her WBC is a bit lower at 0.4 and her other blood counts are not significantly changed today. Oncology is actively following. Reason For Visit: NEUTROPENIC FEVER Physical Exam Vital Signs: Temp Pulse Resp BP Pulse Ox 97.8 F 85 16 138/88 H 98 05/27/20 12:06 05/27/20 14:00 05/27/20 12:06 05/27/20 12:06 05/27/20 12:06 Intake & Output 05/26/20 05/27/20 05/28/20 06:59 06:59 06:59 Intake Total 3669 2240 1300 Output Total 3775 1600 Balance -479 621 3060 Weight 68.1 kg 68.5 kg General appearance: PRESENT: no acute distress, well-developed, well-nourished Head exam: PRESENT: atraumatic, normocephalic Eye exam: PRESENT: conjunctiva pink Mouth exam: PRESENT: moist Respiratory exam: PRESENT: clear to auscultation mikal. ABSENT: rales, rhonchi, wheezes Cardiovascular exam: PRESENT: RRR. ABSENT: diastolic murmur, rubs, systolic murmur GI/Abdominal exam: PRESENT: normal bowel sounds, soft, tenderness - mild/mod. ABSENT: distended, guarding, mass, organolmegaly, rebound Neurological exam: PRESENT: alert, awake, oriented to person, oriented to place. ABSENT: oriented to time, oriented to situation Psychiatric exam: PRESENT: appropriate affect Skin exam: PRESENT: dry, intact, warm Results Laboratory Results: 05/27/20 06:34 05/27/20 06:34 05/27/20 05/27/20 06:34 06:34 WBC 0.4 L* RBC 3.45 L Hgb 10.9 L Hct 31.3 L MCV 91 MCH 31.6 MCHC 34.9 RDW 13.4 Plt Count 95 L Sodium 133.6 L Potassium 3.3 L Chloride 104 Carbon Dioxide 22 Anion Gap 8 BUN 16 Creatinine 0.62 Est GFR ( Amer) > 60 Glucose 133 H Calcium 8.4 Magnesium 1.6 Impressions: Abdomen/Pelvis CT 05/24/20 22:14 IMPRESSION: Constipation with extensive left upper quadrant postoperative changes. No convincing abscess. Assessment and Plan - Diagnosis (1) Neutropenic fever Is this a current diagnosis for this admission?: Yes Plan: Pancytopenia on admission Sepsis Empiric vancomycin/cefepime Blood cultures negative so far Unclear source: Urine does not show infection, chest x-ray does not show pneu monia, abdomen/pelvis CT did not show abscess/infection Blood counts very slow to recover (2) Pancytopenia Is this a current diagnosis for this admission?: Yes (3) Constipation Qualifiers: Constipation type: unspecified constipation type Qualified Code(s): K59.00 - Constipation, unspecified Is this a current diagnosis for this admission?: Yes Plan: Bowel regimen intensified, enema ordered if needed as a last resort Likely due to chronic narcotics use (4) Diabetes mellitus type 2 in nonobese Is this a current diagnosis for this admission?: Yes (5) Hyponatremia Is this a current diagnosis for this admission?: Yes (6) Hypothyroidism Qualifiers: Hypothyroidism type: unspecified Qualified Code(s): E03.9 - Hypothyroidism, unspecified Is this a current diagnosis for this admission?: Yes (7) Pheochromocytoma Qualifiers: Laterality: left Qualified Code(s): D35.02 - Benign neoplasm of left adrenal gland Is this a current diagnosis for this admission?: Yes - Plan Summary Summary: Patient will be admitted to the [facility] where she will receive routine supportive and symptomatic cares. She will be given IV fluids utilizing lactated Ringer's solution at 167 mL/h initially. She will be treated with IV antibiotics utilizing cefepime and Zosyn. Serial lactic acid levels will be performed. Dr. Bianchi will be consulted for oncology. Patient will receive Ativan 1 mg IV every 4 hours as needed for anxiety or restlessness. She will be treated with a cardiac and diabetic restricted diet. Before meals and at bedtime Accu-Cheks will be performed with sliding scale insulin for hyperglycemia and a hypoglycemic protocol in place. Patient's usual medications will be resumed, as appropriate, once her medication list has been verified and reconciled. CBCs, metabolic profiles, magnesium levels and additional laboratory and/or radiographic evaluations will be obtained as appropriate. - Time Time Spent with patient: 15-24 minutes Medications reviewed and adjusted accordingly: Yes - Inpatient Certification Based on my medical assessment, after consideration of the patient's comorbidities, presenting symptoms, or acuity I expect that the services needed warrant INPATIENT care.: Yes I certify that my determination is in accordance with my understanding of Medicare's requirements for reasonable and necessary INPATIENT services [42 CFR 412.3e].: Yes Medical Necessity: Significant Comorbidiites Make Outpatient Treatment Too Risky, Need Close Monitoring Due to Risk of Patient Decompensation, Need for IV Antibiotics, Risk of Complication if Not Cared For in Hospital, Risk of Diagnosis Which Will Require Inpatient Eval/Care/Monitoring
[2020-05-27 19:30] LABS: VANCOMYCIN,TROUGH 18.5 ug/mL (5.0-20.0)
[2020-05-28] MEDS: INSULIN REG, HUMAN 100 UNIT/ML 3 ML VIAL (PYX) SUBCUT SCH ×4 (04:50→22:33)
[2020-05-28] MEDS: NORMAL SALINE 1000 ML 1,000 ML IV PRN (06:23)
[2020-05-28] MEDS: LEVOTHYROXINE SODIUM 0.088 MG TABLET PO SCH (06:23)
[2020-05-28] MEDS: VANCOMYCIN HCL 1,000 MG in DEXTROSE 5%-WATER 250 ML IV SCH ×2 (06:23→18:15)
[2020-05-28 06:53] LABS: HEMATOCRIT 31.1 % (36.0-47.0); HEMOGLOBIN 10.9 g/dL (12.0-15.5); MEAN CORPUSCULAR HEMOGLOBIN 31.6 pg (27.0-33.4); MEAN CORPUSCULAR VOLUME 91 fl (80-97); RED BLOOD COUNT 3.44 10^6/uL (3.72-5.28); RED CELL DISTRIBUTION WIDTH 13.1 % (11.5-14.0)
[2020-05-28 07:01] LABS: ANION GAP 7 (5-19); BLOOD UREA NITROGEN 15 mg/dL (7-20); CALCIUM 8.6 mg/dL (8.4-10.2); CARBON DIOXIDE 21 mmol/L (22-30); CHLORIDE 107 mmol/L (98-107); GLUCOSE 146 mg/dL (75-110); POTASSIUM 3.3 mmol/L (3.6-5.0)
[2020-05-28 08:00] LABS: WHITE BLOOD COUNT 0.5 10^3/uL (4.0-10.5)
[2020-05-28 08:01] LABS: PLATELET COUNT 69 10^3/uL (150-450)
[2020-05-28] MEDS: METFORMIN HCL 500 MG TABLET PO SCH ×2 (08:43→17:58)
[2020-05-28] MEDS: SUCRALFATE 1 GM TABLET PO SCH ×4 (08:43→22:33)
--- NOTE | 2020-05-28 08:48 | PDOC PROGRESS REPORT ---
Subjective Progress Note for:: 05/28/20 Subjective:: Patient denies any problems today. Still sleepy and keeps eyes closed most of the time. She tells me that she had roast beef last night for dinner. She denies any abdominal pain. Reason For Visit: NEUTROPENIC FEVER Physical Exam Vital Signs: Temp Pulse Resp BP Pulse Ox 97.8 F 77 16 152/85 H 100 05/27/20 12:06 05/28/20 02:00 05/27/20 12:06 05/27/20 17:15 05/27/20 17:15 Intake & Output 05/27/20 05/28/20 05/29/20 06:59 06:59 06:59 Intake Total 2240 2837 Output Total 1600 550 Balance 640 2287 Weight 68.5 kg 69.1 kg General appearance: PRESENT: no acute distress, well-developed, well-nourished Head exam: PRESENT: normocephalic Respiratory exam: PRESENT: unlabored Neurological exam: PRESENT: alert, awake Psychiatric exam: PRESENT: flat affect Skin exam: PRESENT: normal color Results Laboratory Results: 05/28/20 06:16 05/28/20 06:16 05/28/20 05/28/20 06:16 06:16 WBC 0.5 L* RBC 3.44 L Hgb 10.9 L Hct 31.1 L MCV 91 MCH 31.6 MCHC 35.0 RDW 13.1 Plt Count 69 L Sodium 134.5 L Potassium 3.3 L Chloride 107 Carbon Dioxide 21 L Anion Gap 7 BUN 15 Creatinine 0.52 Est GFR ( Amer) > 60 Glucose 146 H Calcium 8.6 Magnesium 1.6 Impressions: Abdomen/Pelvis CT 05/24/20 22:14 IMPRESSION: Constipation with extensive left upper quadrant postoperative changes. No convincing abscess. Assessment & Plan - Diagnosis (1) Constipation Qualifiers: Constipation type: unspecified constipation type Qualified Code(s): K59.00 - Constipation, unspecified Is this a current diagnosis for this admission?: Yes Plan: I discussed with Dr. Brown need to avoid enema with her neutropenia. If suppository is not effective, consider change to Senna and Miralax. (2) Hyponatremia Is this a current diagnosis for this admission?: Yes (3) Neutropenic fever Is this a current diagnosis for this admission?: Yes Plan: Fever resolved with antibiotics. But pancytopenia remains. I will add neupogen x 3 days and see if this helps. No indication for transfusion today. No active bleeding. (4) Pancytopenia Is this a current diagnosis for this admission?: Yes (5) Pheochromocytoma Qualifiers: Laterality: left Qualified Code(s): D35.02 - Benign neoplasm of left adrenal gland Is this a current diagnosis for this admission?: Yes - Time Time Spent with patient: 15-24 minutes - Plan Summary Plan Summary: Will continue to follow.
[2020-05-28] MEDS: DOCUSATE SODIUM 100 MG CAPSULE PO SCH ×2 (10:21→17:58)
[2020-05-28] MEDS: MULTIVITAMIN TABLET PO SCH (10:21)
[2020-05-28] MEDS: ASCORBIC ACID 500 MG TABLET PO SCH (10:21)
[2020-05-28] MEDS: PANTOPRAZOLE SODIUM 40 MG PACKET.DR PO SCH (10:22)
[2020-05-28] MEDS: CEFEPIME HCL 2 GM in DEXTROSE 5%-WATER 50 ML IV SCH ×2 (10:22→22:33)
[2020-05-28] MEDS: FAMOTIDINE 20 MG TABLET PO SCH ×2 (10:22→22:33)
[2020-05-28] MEDS: FILGRASTIM-AAFI 480 MCG/0.8 ML SYRINGE SUBCUT SCH (10:23)
[2020-05-28] MEDS: LISINOPRIL 5 MG TABLET PO SCH (10:50)
--- NOTE | 2020-05-28 18:14 | PDOC PROGRESS REPORT ---
Subjective Progress Note for:: 05/28/20 Subjective:: 05/26/2020 Patient was a bit somnolent yesterday and her IV morphine was stopped in favor of restarting her home oral morphine. She appears primarily comfortable today but states she has some intermittent abdominal pain. Her WBC is still quite low but her platelets have risen since getting 2 units of platelets yesterday. We will need to trend her blood counts to make sure they do not drop further. Magnesium very low and we are repleting this today. Patient has no new complaints otherwise. She is continued on IV antibiotics and oncology is following. 05/27/2020 Patient seems to be doing much better today, much more alert and interactive. Her abdomen is soft and she seems to be more comfortable. I discussed with nursing to give her oral Dulcolax, followed by rectal Dulcolax if this is ineffective, followed by enema if this is ineffective. Will be working more aggressively to help her have a bowel movement. She is a very poor historian with regards to when her last bowel movement occurred. Her WBC is a bit lower at 0.4 and her other blood counts are not significantly changed today. Oncology is actively following. 05/28/2020 Patient intermittently confused and intermittently clearheaded. That seems to be her trend over the past few days as long as I have been taking care of her. During my encounter, she is quite clear. The white blood cells minimally elevated versus unchanged. I recommended starting a bone marrow stimulant such as Granix I spoke with Dr. Arthur today. She stated she would look into this and possibly order that. I canceled the patient's enema as this may have some additional risk associated with it in the setting of neutropenic fever. We will continue with the oral and rectal suppositories. Platelets continue to drop and I am concerned she may be needing another platelet transfusion in the near future. We will need to watch for further drops and signs of acute bleeding. Patient has no new complaints today other than some mild abdominal pain. Reason For Visit: NEUTROPENIC FEVER Physical Exam Vital Signs: Temp Pulse Resp BP Pulse Ox 97.5 F 78 18 141/79 H 95 05/28/20 08:36 05/28/20 14:35 05/28/20 08:36 05/28/20 14:35 05/28/20 14:35 Intake & Output 05/27/20 05/28/20 05/29/20 06:59 06:59 06:59 Intake Total 2240 2837 100 Output Total 1600 550 Balance 640 2287 100 Weight 68.5 kg 69.1 kg General appearance: PRESENT: no acute distress, well-developed, well-nourished Head exam: PRESENT: atraumatic, normocephalic Eye exam: PRESENT: conjunctiva pink Mouth exam: PRESENT: moist Respiratory exam: PRESENT: clear to auscultation mikal. ABSENT: rales, rhonchi, wheezes Cardiovascular exam: PRESENT: RRR. ABSENT: diastolic murmur, rubs, systolic murmur GI/Abdominal exam: PRESENT: normal bowel sounds, soft. ABSENT: distended, guarding, mass, organolmegaly, rebound, tenderness Neurological exam: PRESENT: alert, awake, oriented to person, oriented to place Psychiatric exam: PRESENT: appropriate affect Skin exam: PRESENT: dry, intact, warm Results Laboratory Results: 05/28/20 06:16 05/28/20 06:16 05/28/20 05/28/20 06:16 06:16 WBC 0.5 L* RBC 3.44 L Hgb 10.9 L Hct 31.1 L MCV 91 MCH 31.6 MCHC 35.0 RDW 13.1 Plt Count 69 L Sodium 134.5 L Potassium 3.3 L Chloride 107 Carbon Dioxide 21 L Anion Gap 7 BUN 15 Creatinine 0.52 Est GFR ( Amer) > 60 Glucose 146 H Calcium 8.6 Magnesium 1.6 Impressions: Abdomen/Pelvis CT 05/24/20 22:14 IMPRESSION: Constipation with extensive left upper quadrant postoperative changes. No convincing abscess. Assessment and Plan - Diagnosis (1) Neutropenic fever Is this a current diagnosis for this admission?: Yes Plan: Pancytopenia on admission Sepsis Empiric vancomycin/cefepime Blood cultures negative so far Unclear source: Urine does not show infection, chest x-ray does not show pneumonia, abdomen/pelvis CT did not show abscess/infection Blood counts very slow to recover Discussed with Dr. davis starting Granix, she has ordered some bone marrow stimulant which may take several days to show full effect and the numbers (2) Pancytopenia Is this a current diagnosis for this admission?: Yes (3) Constipation Qualifiers: Constipation type: unspecified constipation type Qualified Code(s): K59.00 - Constipation, unspecified Is this a current diagnosis for this admission?: Yes Plan: Oral and rectal suppository bowel regimen intensified; avoid enema as this carries additional risk in setting of neutropenic fever Likely due to chronic narcotics use (4) Diabetes mellitus type 2 in nonobese Is this a current diagnosis for this admission?: Yes (5) Hyponatremia Is this a current diagnosis for this admission?: Yes (6) Hypothyroidism Qualifiers: Hypothyroidism type: unspecified Qualified Code(s): E03.9 - Hypothyroidism, unspecified Is this a current diagnosis for this admission?: Yes (7) Pheochromocytoma Qualifiers: Laterality: left Qualified Code(s): D35.02 - Benign neoplasm of left adrenal gland Is this a current diagnosis for this admission?: Yes - Plan Summary Summary: Patient will be admitted to the [facility] where she will receive routine supportive and symptomatic cares. She will be given IV fluids utilizing lactated Ringer's solution at 167 mL/h initially. She will be treated with IV antibiotics utilizing cefepime and Zosyn. Serial lactic acid levels will be performed. Dr. Bianchi will be consulted for oncology. Patient will receive Ativan 1 mg IV every 4 hours as needed for anxiety or restlessness. She will be treated with a cardiac and diabetic restricted diet. Before meals and at bedtime Accu-Cheks will be performed with sliding scale insulin for hyperglycemia and a hypoglycemic protocol in place. Patient's usual medications will be resumed, as appropriate, once her medication list has been verified and reconciled. CBCs, metabolic profiles, magnesium levels and additional laboratory and/or radiographic evaluations will be obtained as appropriate. - Time Time Spent with patient: 25-34 minutes Medications reviewed and adjusted accordingly: Yes - Inpatient Certification Based on my medical assessment, after consideration of the patient's comorbidi ties, presenting symptoms, or acuity I expect that the services needed warrant INPATIENT care.: Yes I certify that my determination is in accordance with my understanding of Ananda palencia's requirements for reasonable and necessary INPATIENT services [42 CFR 412.3e].: Yes Medical Necessity: Significant Comorbidiites Make Outpatient Treatment Too Risky, Need Close Monitoring Due to Risk of Patient Decompensation, Risk of Complication if Not Cared For in Hospital, Risk of Diagnosis Which Will Require Inpatient Eval/Care/Monitoring
[2020-05-29] MEDS: VANCOMYCIN HCL 1,000 MG in DEXTROSE 5%-WATER 250 ML IV SCH ×2 (06:47→22:36)
[2020-05-29] MEDS: LEVOTHYROXINE SODIUM 0.088 MG TABLET PO SCH (06:47)
[2020-05-29] MEDS: NORMAL SALINE 1000 ML 1,000 ML IV PRN (06:54)
[2020-05-29 07:34] LABS: ANION GAP 5 (5-19); BLOOD UREA NITROGEN 14 mg/dL (7-20); CALCIUM 8.4 mg/dL (8.4-10.2); CARBON DIOXIDE 21 mmol/L (22-30); CHLORIDE 108 mmol/L (98-107); GLUCOSE 139 mg/dL (75-110); POTASSIUM 3.5 mmol/L (3.6-5.0)
--- NOTE | 2020-05-29 08:00 | PDOC PROGRESS REPORT ---
Subjective Progress Note for:: 05/29/20 Subjective:: No acute events overnight Reason For Visit: NEUTROPENIC FEVER Physical Exam Vital Signs: Temp Pulse Resp BP Pulse Ox 97.2 F 74 16 141/79 H 95 05/28/20 11:28 05/29/20 02:00 05/28/20 11:28 05/28/20 14:35 05/28/20 14:35 Intake & Output 05/28/20 05/29/20 05/30/20 06:59 06:59 06:59 Intake Total 2837 1650 Output Total 550 Balance 2287 1650 Weight 69.1 kg 69.6 kg General appearance: PRESENT: no acute distress, well-developed, well-nourished Head exam: PRESENT: atraumatic, normocephalic Eye exam: PRESENT: conjunctiva pink, EOMI, PERRLA. ABSENT: scleral icterus Ear exam: PRESENT: normal external ear exam Mouth exam: PRESENT: moist, tongue midline Neck exam: ABSENT: carotid bruit, JVD, lymphadenopathy, thyromegaly Respiratory exam: PRESENT: clear to auscultation mikal. ABSENT: rales, rhonchi, wheezes Cardiovascular exam: PRESENT: RRR. ABSENT: diastolic murmur, rubs, systolic murmur Pulses: PRESENT: normal dorsalis pedis pul Vascular exam: PRESENT: normal capillary refill GI/Abdominal exam: PRESENT: normal bowel sounds, soft. ABSENT: distended, guarding, mass, organolmegaly, rebound, tenderness Rectal exam: PRESENT: deferred Extremities exam: PRESENT: full ROM. ABSENT: calf tenderness, clubbing, pedal edema Neurological exam: PRESENT: alert, awake, oriented to person, oriented to place, oriented to time, oriented to situation, CN II-XII grossly intact. ABSENT: motor sensory deficit Psychiatric exam: PRESENT: appropriate affect, normal mood. ABSENT: homicidal ideation, suicidal ideation Skin exam: PRESENT: dry, intact, warm. ABSENT: cyanosis, rash Results Laboratory Results: 05/29/20 06:51 05/28/20 05/29/20 06:16 06:51 WBC 0.5 L* RBC 3.44 L Hgb 10.9 L Hct 31.1 L MCV 91 MCH 31.6 MCHC 35.0 RDW 13.1 Plt Count 69 L Sodium 134.2 L Potassium 3.5 L Chloride 108 H Carbon Dioxide 21 L Anion Gap 5 BUN 14 Creatinine 0.52 Est GFR ( Amer) > 60 Glucose 139 H Calcium 8.4 Impressions: Abdomen/Pelvis CT 05/24/20 22:14 IMPRESSION: Constipation with extensive left upper quadrant postoperative changes. No convincing abscess. Assessment & Plan - Diagnosis (1) Neutropenic fever Is this a current diagnosis for this admission?: Yes Plan: She has been on Neupogen, awaiting ANC from today, as long as ANC is less than 1.0 would continue Neupogen. (2) Pheochromocytoma Qualifiers: Laterality: left Qualified Code(s): D35.02 - Benign neoplasm of left adrenal gland Is this a current diagnosis for this admission?: Yes Plan: Rare case of metastatic pheochromocytoma, has received chemotherapy for this through Dr. Huerta in [place]. Will follow. (3) Pancytopenia Is this a current diagnosis for this admission?: Yes Plan: Chemo induced, will follow, no need thus far of platelet or blood transfusion - Time Time Spent with patient: 15-24 minutes
[2020-05-29 08:08] LABS: ABSOLUTE LYMPHOCYTES (AUTO) 0.4 10^3/uL (0.5-4.7); ABSOLUTE MONOCYTES (AUTO) 0.1 10^3/uL (0.1-1.4); ABSOLUTE NEUT (AUTO) 0.2 10^3/uL (1.7-8.2); BASOPHILS % (AUTO) 0.4 % (0-2); EOSINOPHILS % (AUTO) 0.4 % (0-6); HEMATOCRIT 28.4 % (36.0-47.0); HEMOGLOBIN 9.9 g/dL (12.0-15.5); LYMPHOCYTES % (AUTO) 58.5 % (13-45); MEAN CORPUSCULAR HEMOGLOBIN 31.9 pg (27.0-33.4); MEAN CORPUSCULAR HGB CONC 34.8 g/dL (32.0-36.0); MEAN CORPUSCULAR VOLUME 92 fl (80-97); MONOCYTES % (AUTO) 10.3 % (3-13); RED CELL DISTRIBUTION WIDTH 13.3 % (11.5-14.0); SEGMENTED NEUTROPHILS % (AUTO) 30.4 % (42-78); TOTAL CELLS COUNTED % (AUTO) 100 %
[2020-05-29 08:38] LABS: PLATELET COUNT 46 10^3/uL (150-450)
[2020-05-29 08:42] LABS: WHITE BLOOD COUNT 0.7 10^3/uL (4.0-10.5)
[2020-05-29 08:43] LABS: OVALOCYTES SLIGHT; PLATELET COMMENT DECREASED; TEAR DROP CELLS SLIGHT
[2020-05-29] MEDS: METFORMIN HCL 500 MG TABLET PO SCH ×2 (09:14→17:46)
[2020-05-29] MEDS: INSULIN REG, HUMAN 100 UNIT/ML 3 ML VIAL (PYX) SUBCUT SCH ×4 (09:14→22:48)
[2020-05-29] MEDS: SUCRALFATE 1 GM TABLET PO SCH ×4 (09:14→22:20)
[2020-05-29] MEDS: PANTOPRAZOLE SODIUM 40 MG PACKET.DR PO SCH (09:15)
[2020-05-29] MEDS: LISINOPRIL 5 MG TABLET PO SCH (09:15)
[2020-05-29] MEDS: ASCORBIC ACID 500 MG TABLET PO SCH (09:15)
[2020-05-29] MEDS: FILGRASTIM-AAFI 480 MCG/0.8 ML SYRINGE SUBCUT SCH (09:15)
[2020-05-29] MEDS: MULTIVITAMIN TABLET PO SCH (09:15)
[2020-05-29] MEDS: CEFEPIME HCL 2 GM in DEXTROSE 5%-WATER 50 ML IV SCH ×2 (09:15→22:37)
[2020-05-29] MEDS: DOCUSATE SODIUM 100 MG CAPSULE PO SCH ×2 (09:15→17:46)
[2020-05-29] MEDS: FAMOTIDINE 20 MG TABLET PO SCH ×2 (09:15→22:20)
--- NOTE | 2020-05-29 14:07 | PDOC PROGRESS REPORT ---
Subjective Progress Note for:: 05/29/20 Subjective:: 05/26/2020 Patient was a bit somnolent yesterday and her IV morphine was stopped in favor of restarting her home oral morphine. She appears primarily comfortable today but states she has some intermittent abdominal pain. Her WBC is still quite low but her platelets have risen since getting 2 units of platelets yesterday. We will need to trend her blood counts to make sure they do not drop further. Magnesium very low and we are repleting this today. Patient has no new complaints otherwise. She is continued on IV antibiotics and oncology is following. 05/27/2020 Patient seems to be doing much better today, much more alert and interactive. Her abdomen is soft and she seems to be more comfortable. I discussed with nursing to give her oral Dulcolax, followed by rectal Dulcolax if this is ineffective, followed by enema if this is ineffective. Will be working more aggressively to help her have a bowel movement. She is a very poor historian with regards to when her last bowel movement occurred. Her WBC is a bit lower at 0.4 and her other blood counts are not significantly changed today. Oncology is actively following. 05/28/2020 Patient intermittently confused and intermittently clearheaded. That seems to be her trend over the past few days as long as I have been taking care of her. During my encounter, she is quite clear. The white blood cells minimally elevated versus unchanged. I recommended starting a bone marrow stimulant such as Granix I spoke with Dr. Arthur today. She stated she would look into this and possibly order that. I canceled the patient's enema as this may have some additional risk associated with it in the setting of neutropenic fever. We will continue with the oral and rectal suppositories. Platelets continue to drop and I am concerned she may be needing another platelet transfusion in the near future. We will need to watch for further drops and signs of acute bleeding. Patient has no new complaints today other than some mild abdominal pain. 05/29/2020 WBC is finally starting to rise a bit more to 0.7. Per oncology, we will continue Neupogen until WBC reaches 1 or above. Patient is alert and seems to be doing a bit better today. She does not have any new complaints. Platelets are still dropping but the right seems to have slowed. We will hold off on transfusions for today. Reason For Visit: NEUTROPENIC FEVER Physical Exam Vital Signs: Temp Pulse Resp BP Pulse Ox 97.4 F 79 16 149/78 H 96 05/29/20 11:48 05/29/20 11:48 05/29/20 11:48 05/29/20 11:48 05/29/20 11:48 Intake & Output 05/28/20 05/29/20 05/30/20 06:59 06:59 06:59 Intake Total 2837 1650 350 Output Total 550 Balance 2287 1650 350 Weight 69.1 kg 69.6 kg General appearance: PRESENT: no acute distress, well-developed, well-nourished Head exam: PRESENT: atraumatic Eye exam: PRESENT: conjunctiva pink Mouth exam: PRESENT: moist Respiratory exam: PRESENT: clear to auscultation mikal. ABSENT: rales, rhonchi, wheezes Cardiovascular exam: PRESENT: RRR. ABSENT: diastolic murmur, rubs, systolic murmur GI/Abdominal exam: PRESENT: normal bowel sounds, soft. ABSENT: distended, guarding, mass, organolmegaly, rebound, tenderness Neurological exam: PRESENT: alert, awake, oriented to person Psychiatric exam: PRESENT: appropriate affect Skin exam: PRESENT: dry, intact, warm Results Laboratory Results: 05/29/20 06:51 05/29/20 06:51 05/29/20 05/29/20 06:51 06:51 WBC 0.7 L* RBC 3.10 L Hgb 9.9 L Hct 28.4 L MCV 92 MCH 31.9 MCHC 34.8 RDW 13.3 Plt Count 46 L Seg Neutrophils % 30.4 L Sodium 134.2 L Potassium 3.5 L Chloride 108 H Carbon Dioxide 21 L Anion Gap 5 BUN 14 Creatinine 0.52 Est GFR ( Amer) > 60 Glucose 139 H Calcium 8.4 Impressions: Abdomen/Pelvis CT 05/24/20 22:14 IMPRESSION: Constipation with extensive left upper quadrant postoperative changes. No convincing abscess. Assessment and Plan - Diagnosis (1) Neutropenic fever Is this a current diagnosis for this admission?: Yes Plan: Pancytopenia on admission Sepsis Empiric vancomycin/cefepime Blood cultures negative so far Unclear source: Urine does not show infection, chest x-ray does not show pneumonia, abdomen/pelvis CT did not show abscess/infection Blood counts very slow to recover Oncology started Neupogen, counts gradually rising (2) Pancytopenia Is this a current diagnosis for this admission?: Yes (3) Constipation Qualifiers: Constipation type: unspecified constipation type Qualified Code(s): K59.00 - Constipation, unspecified Is this a current diagnosis for this admission?: Yes Plan: Oral and rectal suppository bowel regimen intensified; avoid enema as this carries additional risk in setting of neutropenic fever Likely due to chronic narcotics use Resolved, multiple bowel movements (4) Diabetes mellitus type 2 in nonobese Is this a current diagnosis for this admission?: Yes (5) Hyponatremia Is this a current diagnosis for this admission?: Yes (6) Hypothyroidism Qualifiers: Hypothyroidism type: unspecified Qualified Code(s): E03.9 - Hypothyroidism, unspecified Is this a current diagnosis for this admission?: Yes (7) Pheochromocytoma Qualifiers: Laterality: left Qualified Code(s): D35.02 - Benign neoplasm of left a drenal gland Is this a current diagnosis for this admission?: Yes - Plan Summary Summary: Patient will be admitted to the [facility] where she will receive routine supportive and symptomatic cares. She will be given IV fluids utilizing lactated Ringer's solution at 167 mL/h initially. She will be treated with IV antibiotics utilizi ng cefepime and Zosyn. Serial lactic acid levels will be performed. Dr. Bianchi will be consulted for oncology. Patient will receive Ativan 1 mg IV every 4 hours as needed for anxiety or restlessness. She will be treated with a cardiac and diabetic restricted diet. Before meals and at bedtime Accu-Cheks will be performed with sliding scale insulin for hyperglycemia and a hypoglycemic protocol in place. Patient's usual medications will be resumed, as appropriate, once her medication list has been verified and reconciled. CBCs, metabolic profiles, magnesium levels and additional laboratory and/or radiographic evaluations will be obtained as appropriate. - Time Time Spent with patient: 15-24 minutes Medications reviewed and adjusted accordingly: Yes - Inpatient Certification Based on my medical assessment, after consideration of the patient's comorbidities, presenting symptoms, or acuity I expect that the services needed warrant INPATIENT care.: Yes I certify that my determination is in accordance with my understanding of Medicare's requirements for reasonable and necessary INPATIENT services [42 CFR 412.3e].: Yes Medical Necessity: Significant Comorbidiites Make Outpatient Treatment Too Risky, Need Close Monitoring Due to Risk of Patient Decompensation, Need for IV Antibiotics, Risk of Complication if Not Cared For in Hospital, Risk of Diagnosis Which Will Require Inpatient Eval/Care/Monitoring
[2020-05-30] MEDS: MORPHINE SULFATE IR 15 MG TABLET PO PRN (04:22)
[2020-05-30] MEDS: VANCOMYCIN HCL 1,000 MG in DEXTROSE 5%-WATER 250 ML IV SCH ×2 (05:51→17:37)
[2020-05-30] MEDS: LEVOTHYROXINE SODIUM 0.088 MG TABLET PO SCH (05:51)
[2020-05-30] MEDS: NORMAL SALINE 1000 ML 1,000 ML IV PRN ×3 (05:52→23:31)
[2020-05-30] MEDS: SUCRALFATE 1 GM TABLET PO SCH ×4 (08:00→21:57)
--- NOTE | 2020-05-30 08:21 | PDOC PROGRESS REPORT ---
Subjective Progress Note for:: 05/30/20 Subjective:: Patient more talkative today. Complains of "gook" in mouth. Receiving mouth care now. Nurses report no BM charted yet. Patient still with abdominal pain, but not requesting pain meds. She also has not yet been out of bed since admission. Reason For Visit: NEUTROPENIC FEVER Physical Exam Vital Signs: Temp Pulse Resp BP Pulse Ox 97.3 F 70 18 158/76 H 95 05/30/20 00:00 05/30/20 02:00 05/30/20 00:00 05/30/20 00:00 05/30/20 00:00 Intake & Output 05/29/20 05/30/20 05/31/20 06:59 06:59 06:59 Intake Total 1650 2009 Balance 1650 2009 Weight 69.6 kg 67.4 kg General appearance: PRESENT: thin Head exam: PRESENT: normocephalic Eye exam: PRESENT: EOMI Mouth exam: PRESENT: dry mucosa Respiratory exam: PRESENT: unlabored Neurological exam: PRESENT: alert, awake Psychiatric exam: PRESENT: flat affect Skin exam: PRESENT: normal color Results Laboratory Results: 05/29/20 06:51 05/29/20 06:51 05/29/20 06:51 WBC 0.7 L* RBC 3.10 L Hgb 9.9 L Hct 28.4 L MCV 92 MCH 31.9 MCHC 34.8 RDW 13.3 Plt Count 46 L Seg Neutrophils % 30.4 L 05/24/20 20:40 Blood Blood Culture - Final NO GROWTH IN 5 DAYS 05/24/20 20:50 Blood Blood Culture - Final NO GROWTH IN 5 DAYS Impressions: Abdomen/Pelvis CT 05/24/20 22:14 IMPRESSION: Constipation with extensive left upper quadrant postoperative changes. No convincing abscess. Assessment & Plan - Diagnosis (1) Constipation Qualifiers: Constipation type: unspecified constipation type Qualified Code(s): K59.00 - Constipation, unspecified Is this a current diagnosis for this admission?: Yes Plan: Avoid opiods!! Continue oral laxatives. (2) Hyponatremia Is this a current diagnosis for this admission?: Yes (3) Neutropenic fever Is this a current diagnosis for this admission?: Yes Plan: Fever resolved. Continue G-CSF until ANC >1000 for 2 days in a row. (4) Pancytopenia Is this a current diagnosis for this admission?: Yes Plan: Slowly resolving. No indication for transfusion today. (5) Pheochromocytoma Qualifiers: Laterality: left Qualified Code(s): D35.02 - Benign neoplasm of left adrenal gland Is this a current diagnosis for this admission?: Yes - Time Time Spent with patient: 15-24 minutes - Plan Summary Plan Summary: Needs to get up and walk in [place] as much as possible. Continue to adjust laxatives.
[2020-05-30 09:40] LABS: HEMATOCRIT 32.1 % (36.0-47.0); HEMOGLOBIN 11.1 g/dL (12.0-15.5); MEAN CORPUSCULAR HEMOGLOBIN 31.4 pg (27.0-33.4); MEAN CORPUSCULAR HGB CONC 34.5 g/dL (32.0-36.0); MEAN CORPUSCULAR VOLUME 91 fl (80-97); RED BLOOD COUNT 3.53 10^6/uL (3.72-5.28); RED CELL DISTRIBUTION WIDTH 13.2 % (11.5-14.0)
[2020-05-30] MEDS: METFORMIN HCL 500 MG TABLET PO SCH ×2 (10:58→17:37)
[2020-05-30] MEDS: LISINOPRIL 5 MG TABLET PO SCH (10:58)
[2020-05-30] MEDS: POLYETHYLENE GLYCOL 3350 POWDER 17 GM/1 PACKET PO SCH (10:58)
[2020-05-30] MEDS: MULTIVITAMIN TABLET PO SCH (10:58)
[2020-05-30] MEDS: ASCORBIC ACID 500 MG TABLET PO SCH (10:58)
[2020-05-30] MEDS: INSULIN REG, HUMAN 100 UNIT/ML 3 ML VIAL (PYX) SUBCUT SCH ×4 (10:59→21:41)
[2020-05-30] MEDS: FAMOTIDINE 20 MG TABLET PO SCH ×2 (10:59→21:57)
[2020-05-30] MEDS: DOCUSATE SODIUM 100 MG CAPSULE PO SCH ×2 (10:59→17:37)
[2020-05-30] MEDS: PANTOPRAZOLE SODIUM 40 MG PACKET.DR PO SCH (11:01)
[2020-05-30] MEDS: FILGRASTIM-AAFI 480 MCG/0.8 ML SYRINGE SUBCUT SCH (11:01)
[2020-05-30] MEDS: CEFEPIME HCL 2 GM in DEXTROSE 5%-WATER 50 ML IV SCH ×2 (11:02→21:56)
[2020-05-30 11:04] LABS: WHITE BLOOD COUNT 1.3 10^3/uL (4.0-10.5)
[2020-05-30 11:06] LABS: PLATELET COUNT 33 10^3/uL (150-450)
[2020-05-30 11:11] LABS: ABSOLUTE LYMPHOCYTES# (MANUAL) 0.6 10^3/uL (0.5-4.7); ABSOLUTE MONOCYTES # (MANUAL) 0.1 10^3/uL (0.1-1.4); BASOPHILS % (MANUAL) 2 % (0-2); EOSINOPHILS % (MANUAL) 0 % (0-6); LYMPHOCYTES % (MANUAL) 42 % (13-45); MONOCYTES % (MANUAL) 6 % (3-13); SEGMENTED NEUTROPHILS % (MAN) 48 % (42-78); TOTAL CELLS COUNTED 50
[2020-05-30 11:12] LABS: OVALOCYTES SLIGHT; PLATELET COMMENT DECREASED; TOXIC GRANULATION SLIGHT
--- NOTE | 2020-05-30 19:04 | PDOC PROGRESS REPORT ---
Subjective Progress Note for:: 05/30/20 Subjective:: 05/26/2020 Patient was a bit somnolent yesterday and her IV morphine was stopped in favor of restarting her home oral morphine. She appears primarily comfortable today but states she has some intermittent abdominal pain. Her WBC is still quite low but her platelets have risen since getting 2 units of platelets yesterday. We will need to trend her blood counts to make sure they do not drop further. Magnesium very low and we are repleting this today. Patient has no new complaints otherwise. She is continued on IV antibiotics and oncology is following. 05/27/2020 Patient seems to be doing much better today, much more alert and interactive. Her abdomen is soft and she seems to be more comfortable. I discussed with nursing to give her oral Dulcolax, followed by rectal Dulcolax if this is ineffective, followed by enema if this is ineffective. Will be working more aggressively to help her have a bowel movement. She is a very poor historian with regards to when her last bowel movement occurred. Her WBC is a bit lower at 0.4 and her other blood counts are not significantly changed today. Oncology is actively following. 05/28/2020 Patient intermittently confused and intermittently clearheaded. That seems to be her trend over the past few days as long as I have been taking care of her. During my encounter, she is quite clear. The white blood cells minimally elevated versus unchanged. I recommended starting a bone marrow stimulant such as Granix I spoke with Dr. Arthur today. She stated she would look into this and possibly order that. I canceled the patient's enema as this may have some additional risk associated with it in the setting of neutropenic fever. We will continue with the oral and rectal suppositories. Platelets continue to drop and I am concerned she may be needing another platelet transfusion in the near future. We will need to watch for further drops and signs of acute bleeding. Patient has no new complaints today other than some mild abdominal pain. 05/29/2020 WBC is finally starting to rise a bit more to 0.7. Per oncology, we will continue Neupogen until WBC reaches 1 or above. Patient is alert and seems to be doing a bit better today. She does not have any new complaints. Platelets are still dropping but the right seems to have slowed. We will hold off on transfusions for today. 05/30/2020 Patient seems to be doing a bit better each day and has bit more energy. She is seen today sitting up in a chair and smiling a bit. Her abdomen is still a bit tender in the left lower quadrant but is overall improved and is still quite soft. She has had a notable improvement in her WBC count up to 1.3 from 0.7 yesterday. Oncology has decided to continue giving Neupogen as patient is responding to this very well. Patient is continued on broad-spectrum antibiotics. Please may be able to stop soon as her blood counts improved. Reason For Visit: NEUTROPENIC FEVER Physical Exam Vital Signs: Temp Pulse Resp BP Pulse Ox 98.2 F 102 H 18 119/70 99 05/30/20 11:36 05/30/20 15:25 05/30/20 11:36 05/30/20 11:36 05/30/20 11:36 Intake & Output 05/29/20 05/30/20 05/31/20 06:59 06:59 06:59 Intake Total 1650 2009 167 Balance 1650 2009 167 Weight 69.6 kg 67.4 kg General appearance: PRESENT: no acute distress, well-developed, well-nourished Head exam: PRESENT: atraumatic, normocephalic Eye exam: PRESENT: conjunctiva pink Mouth exam: PRESENT: moist Respiratory exam: PRESENT: clear to auscultation mikal. ABSENT: rales, rhonchi, wheezes Cardiovascular exam: PRESENT: RRR. ABSENT: diastolic murmur, rubs, systolic murmur GI/Abdominal exam: PRESENT: normal bowel sounds, soft, tenderness - Minimal. ABSENT: distended, guarding, mass, organolmegaly, rebound Neurological exam: PRESENT: alert, awake, oriented to person, oriented to place, oriented to time, oriented to situation Psychiatric exam: PRESENT: appropriate affect Skin exam: PRESENT: dry, intact, warm Results Laboratory Results: 05/30/20 08:56 05/29/20 06:51 05/30/20 08:56 WBC 1.3 L* RBC 3.53 L Hgb 11.1 L Hct 32.1 L MCV 91 MCH 31.4 MCHC 34.5 RDW 13.2 Plt Count 33 L Seg Neutrophils % Not Reportable 05/24/20 20:40 Blood Blood Culture - Final NO GROWTH IN 5 DAYS 05/24/20 20:50 Blood Blood Culture - Final NO GROWTH IN 5 DAYS Impressions: Abdomen/Pelvis CT 05/24/20 22:14 IMPRESSION: Constipation with extensive left upper quadrant postoperative changes. No convincing abscess. Assessment and Plan - Diagnosis (1) Neutropenic fever Is this a current diagnosis for this admission?: Yes Plan: Pancytopenia on admission Sepsis Empiric vancomycin/cefepime Blood cultures negative so far Unclear source: Urine does not show infection, chest x-ray does not show pneumonia, abdomen/pelvis CT did not show abscess/infection Blood counts very slow to recover Oncology started Neupogen, counts gradually rising; notable improvement after multiple doses (2) Pancytopenia Is this a current diagnosis for this admission?: Yes Plan: Trend CBC Hematology consulted and actively following Chemotherapy has been held Transfused 2 units platelets on 05/25 Significant improvement on Neupogen (3) Constipation Qualifiers: Constipation type: unspecified constipation type Qualified Code(s): K59.00 - Constipation, unspecified Is this a current diagnosis for this admission?: Yes (4) Diabetes mellitus type 2 in nonobese Is this a current diagnosis for this admission?: Yes (5) Hyponatremia Is this a current diagnosis for this admission?: Yes (6) Hypothyroidism Qualifiers: Hypothyroidism type: unspecified Qualified Code(s): E03.9 - Hypothyroidism, unspecified Is this a current diagnosis for this admission?: Yes (7) Pheochromocytoma Qualifiers: Laterality: left Qualified Code(s): D35.02 - Benign neoplasm of left adrenal gland Is this a current diagnosis for this admission?: Yes - Plan Summary Summary: Patient will be admitted to the [facility] where she will receive routine supportive and symptomatic cares. She will be given IV fluids utilizing lactated Ringer's solution at 167 mL/h initially. She will be treated with IV antibiotics utilizing cefepime and Zosyn. Serial lactic acid levels will be performed. Dr. Bianchi will be consulted for oncology. Patient will receive Ativan 1 mg IV every 4 hours as needed for anxiety or restlessness. She will be treated with a cardiac and diabetic restricted diet. Before meals and at bedtime Accu-Cheks will be performed with sliding scale insulin for hyperglycemia and a hypoglycemic protocol in place. Patient's usual medications will be resumed, as appropriate, once her medication list has been verified and reconciled. CBCs, metabolic profiles, magnesium levels and additional laboratory and/or r adiographic evaluations will be obtained as appropriate. - Time Time Spent with patient: 25-34 minutes Medications reviewed and adjusted accordingly: Yes - Inpatient Certification Based on my medical assessment, after consideration of the patient's comorbidities, presenting symptoms, or acuity I expect that the services needed warrant INPATIENT care.: Yes I certify that my determination is in accordance with my understanding of Medicare's requirements for reasonable and necessary INPATIENT services [42 CFR 412.3e].: Yes Medical Necessity: Significant Comorbidiites Make Outpatient Treatment Too Risky, Need Close Monitoring Due to Risk of Patient Decompensation, Need for IV Antibiotics, Risk of Complication if Not Cared For in Hospital, Risk of Diagnosis Which Will Require Inpatient Eval/Care/Monitoring
[2020-05-31] MEDS: LEVOTHYROXINE SODIUM 0.088 MG TABLET PO SCH (05:23)
[2020-05-31] MEDS: VANCOMYCIN HCL 1,000 MG in DEXTROSE 5%-WATER 250 ML IV SCH ×2 (05:23→17:29)
[2020-05-31] MEDS: METFORMIN HCL 500 MG TABLET PO SCH ×2 (08:29→17:29)
[2020-05-31] MEDS: SUCRALFATE 1 GM TABLET PO SCH ×4 (08:29→21:23)
[2020-05-31] MEDS: INSULIN REG, HUMAN 100 UNIT/ML 3 ML VIAL (PYX) SUBCUT SCH ×3 (08:30→17:28)
[2020-05-31] MEDS ORDERED: FILGRASTIM-AAFI 480 MCG/0.8 ML SYRINGE SUBCUT SCH (10:00)
[2020-05-31] MEDS: POLYETHYLENE GLYCOL 3350 POWDER 17 GM/1 PACKET PO SCH (10:50)
[2020-05-31] MEDS: FILGRASTIM-AAFI 480 MCG/0.8 ML SYRINGE SUBCUT SCH (10:50)
[2020-05-31] MEDS: ASCORBIC ACID 500 MG TABLET PO SCH (10:50)
--- NOTE | 2020-05-31 10:50 | PDOC PROGRESS REPORT ---
Subjective Progress Note for:: 05/31/20 Subjective:: CBC pending this morning. Had bowel movements overnight. No other acute events. Reason For Visit: NEUTROPENIC FEVER Physical Exam Vital Signs: Temp Pulse Resp BP Pulse Ox 97.5 F 69 20 150/72 H 97 05/31/20 07:56 05/31/20 07:56 05/31/20 07:56 05/31/20 07:56 05/31/20 07:56 Intake & Output 05/30/20 05/31/20 06/01/20 06:59 06:59 06:59 Intake Total 2009 3022 Output Total 1450 Balance 2009 1572 Weight 67.4 kg 69 kg General appearance: PRESENT: no acute distress, well-developed, well-nourished Head exam: PRESENT: atraumatic, normocephalic Eye exam: PRESENT: conjunctiva pink, EOMI, PERRLA. ABSENT: scleral icterus Ear exam: PRESENT: normal external ear exam Mouth exam: PRESENT: moist, tongue midline Neck exam: ABSENT: carotid bruit, JVD, lymphadenopathy, thyromegaly Respiratory exam: PRESENT: clear to auscultation mikal. ABSENT: rales, rhonchi, wheezes Cardiovascular exam: PRESENT: RRR. ABSENT: diastolic murmur, rubs, systolic murmur Pulses: PRESENT: normal dorsalis pedis pul Vascular exam: PRESENT: normal capillary refill GI/Abdominal exam: PRESENT: normal bowel sounds, soft. ABSENT: distended, guarding, mass, organolmegaly, rebound, tenderness Rectal exam: PRESENT: deferred Extremities exam: PRESENT: full ROM. ABSENT: calf tenderness, clubbing, pedal edema Neurological exam: PRESENT: alert, awake, oriented to person, oriented to place, oriented to time, oriented to situation, CN II-XII grossly intact. ABSENT: motor sensory deficit Psychiatric exam: PRESENT: appropriate affect, normal mood. ABSENT: homicidal ideation, suicidal ideation Skin exam: PRESENT: dry, intact, warm. ABSENT: cyanosis, rash Results Laboratory Results: 05/30/20 08:56 05/29/20 06:51 05/30/20 08:56 WBC 1.3 L* RBC 3.53 L Hgb 11.1 L Hct 32.1 L MCV 91 MCH 31.4 MCHC 34.5 RDW 13.2 Plt Count 33 L Seg Neutrophils % Not Reportable Impressions: Abdomen/Pelvis CT 05/24/20 22:14 IMPRESSION: Constipation with extensive left upper quadrant postoperative changes. No convincing abscess. Assessment & Plan - Diagnosis (1) Neutropenic fever Is this a current diagnosis for this admission?: Yes Plan: Continues on Neupogen, awaiting counts today. Continue Neupogen until ANC greater than 1000 x 2 days. (2) Pheochromocytoma Qualifiers: Laterality: left Qualified Code(s): D35.02 - Benign neoplasm of left adrenal gland Is this a current diagnosis for this admission?: Yes Plan: Therapy as an outpatient (3) Pancytopenia Is this a current diagnosis for this admission?: Yes Plan: White count and hemoglobin improving but platelets still low. May take some time to recover. Not actively bleeding so no need for platelet transfusion unless platelets under 10. - Time Time Spent with patient: 25-34 minutes
[2020-05-31] MEDS: DOCUSATE SODIUM 100 MG CAPSULE PO SCH ×2 (10:51→17:29)
[2020-05-31] MEDS: LISINOPRIL 5 MG TABLET PO SCH (10:51)
[2020-05-31] MEDS: MULTIVITAMIN TABLET PO SCH (10:51)
[2020-05-31] MEDS: FAMOTIDINE 20 MG TABLET PO SCH ×2 (10:51→21:23)
[2020-05-31] MEDS: PANTOPRAZOLE SODIUM 40 MG PACKET.DR PO SCH (10:59)
[2020-05-31] MEDS: CEFEPIME HCL 2 GM in DEXTROSE 5%-WATER 50 ML IV SCH ×2 (10:59→21:24)
[2020-05-31 11:26] LABS: HEMATOCRIT 28.1 % (36.0-47.0); HEMOGLOBIN 9.7 g/dL (12.0-15.5); MEAN CORPUSCULAR HEMOGLOBIN 31.8 pg (27.0-33.4); MEAN CORPUSCULAR HGB CONC 34.7 g/dL (32.0-36.0); MEAN CORPUSCULAR VOLUME 92 fl (80-97); RED BLOOD COUNT 3.05 10^6/uL (3.72-5.28); RED CELL DISTRIBUTION WIDTH 13.2 % (11.5-14.0); WHITE BLOOD COUNT 2.3 10^3/uL (4.0-10.5)
[2020-05-31 11:47] LABS: PLATELET COUNT 27 10^3/uL (150-450)
[2020-05-31 12:02] LABS: ABSOLUTE LYMPHOCYTES# (MANUAL) 0.8 10^3/uL (0.5-4.7); ABSOLUTE MONOCYTES # (MANUAL) 0.1 10^3/uL (0.1-1.4); BASOPHILS % (MANUAL) 0 % (0-2); EOSINOPHILS % (MANUAL) 1 % (0-6); LYMPHOCYTES % (MANUAL) 34 % (13-45); METAMYELOCYTES % (MANUAL) 1 % (0-1); MONOCYTES % (MANUAL) 5 % (3-13); SEGMENTED NEUTROPHILS % (MAN) 58 % (42-78); TOTAL CELLS COUNTED 100
[2020-05-31 12:04] LABS: HYPOCHROMASIA SLIGHT; PLATELET COMMENT DECREASED; PLATELET LARGE PRESENT
[2020-05-31 12:06] LABS: OVALOCYTES SLIGHT
--- NOTE | 2020-05-31 13:07 | PDOC PROGRESS REPORT ---
Subjective Progress Note for:: 05/31/20 Subjective:: Patient is doing well today. She has no complaints. She had a good sized bowel movement earlier today and was having on the home this morning. Remains afebrile. Reason For Visit: NEUTROPENIC FEVER Physical Exam Vital Signs: Temp Pulse Resp BP Pulse Ox 98.0 F 81 20 135/70 H 99 05/31/20 11:36 05/31/20 11:36 05/31/20 11:36 05/31/20 11:36 05/31/20 11:36 Intake & Output 05/30/20 05/31/20 06/01/20 06:59 06:59 06:59 Intake Total 2009 3022 Output Total 1450 Balance 2009 1572 Weight 67.4 kg 69 kg General appearance: PRESENT: no acute distress, cooperative Neck exam: ABSENT: JVD Respiratory exam: PRESENT: symmetrical, unlabored. ABSENT: accessory muscle use, retraction, tachypnea Cardiovascular exam: ABSENT: tachycardia GI/Abdominal exam: PRESENT: soft. ABSENT: rebound, rigid, tenderness Neurological exam: PRESENT: alert, awake Results Laboratory Results: 05/31/20 11:05 05/29/20 06:51 05/31/20 11:05 WBC 2.3 L RBC 3.05 L Hgb 9.7 L Hct 28.1 L MCV 92 MCH 31.8 MCHC 34.7 RDW 13.2 Plt Count 27 L* Seg Neutrophils % Not Reportable Impressions: Abdomen/Pelvis CT 05/24/20 22:14 IMPRESSION: Constipation with extensive left upper quadrant postoperative changes. No convincing abscess. Assessment and Plan - Diagnosis (1) Neutropenic fever Is this a current diagnosis for this admission?: Yes Plan: Pancytopenia on admission Sepsis resolved Empiric vancomycin/cefepime Blood cultures negative so far Unclear source: Urine does not show infection, chest x-ray does not show pneumonia, abdomen/pelvis CT did not show abscess/infection Oncology started Neupogen, counts gradually rising; notable improvement after multiple doses -Patient has been afebrile for several days now and ANC is now over 1000. Today seems to be Day 6 of antibiotics so anticipate that antibiotic should be discontinued soon. (2) Pancytopenia Is this a current diagnosis for this admission?: Yes Plan: Trend CBC Hematology consulted and actively following Chemotherapy has been held Transfused 2 units platelets on 05/25 -WBC is 2300 today with ANC of 1400. We will continue Neupogen for 1 more day until ANC >1k x 2days as recommended by oncology. -Platelet is trending down but will only transfuse if less than 10,000 (3) Hyponatremia Is this a current diagnosis for this admission?: Yes Plan: Stable (4) Constipation Qualifiers: Constipation type: unspecified constipation type Qualified Code(s): K59.00 - Constipation, unspecified Is this a current diagnosis for this admission?: Yes Plan: Resolved, patient had 2 good bowel movements in the past 24 hours. Continue bowel regimen. Has only needed morphine once in the past 4 days so I will keep morphine on hold for now. Still with tramadol. (5) Diabetes mellitus type 2 in nonobese Is this a current diagnosis for this admission?: Yes Plan: Accu-Cheks, sliding scale insulin (6) Hypothyroidism Qualifiers: Hypothyroidism type: unspecified Qualified Code(s): E03.9 - Hypothyroidism, unspecified Is this a current diagnosis for this admission?: Yes (7) Pheochromocytoma Qualifiers: Laterality: left Qualified Code(s): D35.02 - Benign neoplasm of left adrenal gland Is this a current diagnosis for this admission?: Yes Plan: Treatment per oncology as outpatient - Plan Summary Summary: . - Time Time Spent with patient: Less than 15 minutes
[2020-05-31] MEDS: TRAMADOL HCL 50 MG TABLET PO PRN (20:00)
[2020-06-01 04:30] LABS: HEMOGLOBIN 9.8 g/dL (12.0-15.5); MEAN CORPUSCULAR HEMOGLOBIN 31.1 pg (27.0-33.4); MEAN CORPUSCULAR HGB CONC 33.9 g/dL (32.0-36.0); MEAN CORPUSCULAR VOLUME 92 fl (80-97); RED BLOOD COUNT 3.16 10^6/uL (3.72-5.28); RED CELL DISTRIBUTION WIDTH 13.1 % (11.5-14.0); WHITE BLOOD COUNT 3.6 10^3/uL (4.0-10.5)
[2020-06-01 04:33] LABS: PLATELET COUNT 24 10^3/uL (150-450)
[2020-06-01 04:37] LABS: ANION GAP 5 (5-19); BLOOD UREA NITROGEN 14 mg/dL (7-20); CALCIUM 9.3 mg/dL (8.4-10.2); CARBON DIOXIDE 24 mmol/L (22-30); CHLORIDE 106 mmol/L (98-107); GLUCOSE 133 mg/dL (75-110); POTASSIUM 4.5 mmol/L (3.6-5.0)
[2020-06-01] MEDS: INSULIN REG, HUMAN 100 UNIT/ML 3 ML VIAL (PYX) SUBCUT SCH ×5 (04:41→21:25)
[2020-06-01 04:48] LABS: ABSOLUTE LYMPHOCYTES# (MANUAL) 0.8 10^3/uL (0.5-4.7); ABSOLUTE MONOCYTES # (MANUAL) 0.6 10^3/uL (0.1-1.4); BAND NEUTROPHILS % (MANUAL) 1 % (3-5); BASOPHILS % (MANUAL) 0 % (0-2); EOSINOPHILS % (MANUAL) 0 % (0-6); LYMPHOCYTES % (MANUAL) 23 % (13-45); MONOCYTES % (MANUAL) 16 % (3-13); SEGMENTED NEUTROPHILS % (MAN) 60 % (42-78); TOTAL CELLS COUNTED 100
[2020-06-01 04:50] LABS: PLATELET COMMENT DECREASED; RBC MORPHOLOGY COMMENT NORMO-CYTIC/CHROMIC
[2020-06-01] MEDS: LEVOTHYROXINE SODIUM 0.088 MG TABLET PO SCH (05:32)
[2020-06-01] MEDS: VANCOMYCIN HCL 1,000 MG in DEXTROSE 5%-WATER 250 ML IV SCH (05:33)
[2020-06-01] MEDS: NORMAL SALINE 1000 ML 1,000 ML IV PRN (05:39)
[2020-06-01] MEDS: METFORMIN HCL 500 MG TABLET PO SCH ×2 (08:35→15:29)
[2020-06-01] MEDS: TRAMADOL HCL 50 MG TABLET PO PRN ×2 (08:35→19:54)
[2020-06-01] MEDS: SUCRALFATE 1 GM TABLET PO SCH ×4 (08:35→21:24)
[2020-06-01] MEDS: MULTIVITAMIN TABLET PO SCH (11:59)
[2020-06-01] MEDS: MAGNESIUM OXIDE 400 MG TABLET PO SCH ×2 (11:59→21:24)
[2020-06-01] MEDS: LISINOPRIL 5 MG TABLET PO SCH (11:59)
[2020-06-01] MEDS: DOCUSATE SODIUM 100 MG CAPSULE PO SCH ×2 (11:59→17:27)
[2020-06-01] MEDS: ASCORBIC ACID 500 MG TABLET PO SCH (11:59)
[2020-06-01] MEDS: FAMOTIDINE 20 MG TABLET PO SCH ×2 (11:59→21:24)
[2020-06-01] MEDS: POLYETHYLENE GLYCOL 3350 POWDER 17 GM/1 PACKET PO SCH (12:00)
[2020-06-01] MEDS: PANTOPRAZOLE SODIUM 40 MG PACKET.DR PO SCH (12:00)
--- NOTE | 2020-06-01 13:15 | PDOC PROGRESS REPORT ---
Subjective Progress Note for:: 06/01/20 Subjective:: No acute events overnight Reason For Visit: NEUTROPENIC FEVER Physical Exam Vital Signs: Temp Pulse Resp BP Pulse Ox 97.5 F 99 20 157/80 H 99 06/01/20 11:46 06/01/20 11:46 06/01/20 11:46 06/01/20 11:46 06/01/20 11:46 Intake & Output 05/31/20 06/01/20 06/02/20 06:59 06:59 06:59 Intake Total 3272 2565 250 Output Total 1450 2160 Balance 1822 405 250 Weight 69 kg 70.3 kg General appearance: PRESENT: no acute distress, well-developed, well-nourished Head exam: PRESENT: atraumatic, normocephalic Eye exam: PRESENT: conjunctiva pink, EOMI, PERRLA. ABSENT: scleral icterus Ear exam: PRESENT: normal external ear exam Mouth exam: PRESENT: moist, tongue midline Neck exam: ABSENT: carotid bruit, JVD, lymphadenopathy, thyromegaly Respiratory exam: PRESENT: clear to auscultation mikal. ABSENT: rales, rhonchi, wheezes Cardiovascular exam: PRESENT: RRR. ABSENT: diastolic murmur, rubs, systolic murmur Pulses: PRESENT: normal dorsalis pedis pul Vascular exam: PRESENT: normal capillary refill GI/Abdominal exam: PRESENT: normal bowel sounds, soft. ABSENT: distended, guarding, mass, organolmegaly, rebound, tenderness Rectal exam: PRESENT: deferred Extremities exam: PRESENT: full ROM. ABSENT: calf tenderness, clubbing, pedal edema Neurological exam: PRESENT: alert, awake, oriented to person, oriented to place, oriented to time, oriented to situation, CN II-XII grossly intact. ABSENT: motor sensory deficit Psychiatric exam: PRESENT: appropriate affect, normal mood. ABSENT: homicidal ideation, suicidal ideation Skin exam: PRESENT: dry, intact, warm. ABSENT: cyanosis, rash Results Laboratory Results: 06/01/20 03:55 06/01/20 03:55 06/01/20 06/01/20 03:55 03:55 WBC 3.6 L RBC 3.16 L Hgb 9.8 L Hct 29.0 L MCV 92 MCH 31.1 MCHC 33.9 RDW 13.1 Plt Count 24 L* Seg Neutrophils % Not Reportable Sodium 135.0 L Potassium 4.5 Chloride 106 Carbon Dioxide 24 Anion Gap 5 BUN 14 Creatinine 0.62 Est GFR ( Amer) > 60 Glucose 133 H Calcium 9.3 Magnesium 1.4 L Impressions: Abdomen/Pelvis CT 05/24/20 22:14 IMPRESSION: Constipation with extensive left upper quadrant postoperative changes. No convincing abscess. Assessment & Plan - Diagnosis (1) Neutropenic fever Is this a current diagnosis for this admission?: Yes Plan: Improved, will give 1 more shot of Neupogen today and discontinue. (2) Pheochromocytoma Qualifiers: Laterality: left Qualified Code(s): D35.02 - Benign neoplasm of left adrenal gland Is this a current diagnosis for this admission?: Yes Plan: Being followed by Dr. Foley [place]. (3) Pancytopenia Is this a current diagnosis for this admission?: Yes Plan: Platelet count is down to 24, should improve over time however. - Time Time Spent with patient: 15-24 minutes
[2020-06-01] MEDS ORDERED: FILGRASTIM-AAFI 480 MCG/0.8 ML SYRINGE SUBCUT ONE (15:15)
--- NOTE | 2020-06-01 16:55 | PDOC PROGRESS REPORT ---
Subjective Progress Note for:: 06/01/20 Subjective:: Patient feels well today. Discussed with her that she will potentially be going home tomorrow. Has no other complaints just still feels fatigued. Reason For Visit: NEUTROPENIC FEVER Physical Exam Vital Signs: Temp Pulse Resp BP Pulse Ox 97.8 F 95 20 133/75 H 96 06/01/20 15:07 06/01/20 15:07 06/01/20 15:07 06/01/20 15:07 06/01/20 15:07 Intake & Output 05/31/20 06/01/20 06/02/20 06:59 06:59 06:59 Intake Total 3272 2565 250 Output Total 1450 2160 Balance 1822 405 250 Weight 69 kg 70.3 kg General appearance: PRESENT: no acute distress, cooperative Neck exam: ABSENT: JVD Respiratory exam: PRESENT: clear to auscultation mikal, unlabored GI/Abdominal exam: PRESENT: soft, tenderness. ABSENT: distended, firm, guarding, rebound, rigid Neurological exam: PRESENT: alert, awake Results Laboratory Results: 06/01/20 03:55 06/01/20 03:55 06/01/20 06/01/20 03:55 03:55 WBC 3.6 L RBC 3.16 L Hgb 9.8 L Hct 29.0 L MCV 92 MCH 31.1 MCHC 33.9 RDW 13.1 Plt Count 24 L* Seg Neutrophils % Not Reportable Sodium 135.0 L Potassium 4.5 Chloride 106 Carbon Dioxide 24 Anion Gap 5 BUN 14 Creatinine 0.62 Est GFR ( Amer) > 60 Glucose 133 H Calcium 9.3 Magnesium 1.4 L Impressions: Abdomen/Pelvis CT 05/24/20 22:14 IMPRESSION: Constipation with extensive left upper quadrant postoperative changes. No convincing abscess. Assessment and Plan - Diagnosis (1) Neutropenic fever Is this a current diagnosis for this admission?: Yes Plan: Pancytopenia on admission Sepsis resolved Empiric vancomycin/cefepime Blood cultures negative so far Unclear source: Urine does not show infection, chest x-ray does not show pneum onia, abdomen/pelvis CT did not show abscess/infection "Will quiet and discontinue Neupogen and the patient's ANC is persistently over 1000. -Patient has been afebrile for several days now and ANC is now over 1000. Today seems to be Day 7 of antibiotics so anticipate that antibiotic should be disc ontinued soon. (2) Pancytopenia Is this a current diagnosis for this admission?: Yes Plan: Trend CBC Hematology consulted and actively following Chemotherapy has been held Transfused 2 units platelets on 05/25 -WBC is 2300 today with ANC of 1400. Neupogen discontinued. -Platelet is trending down but seems to be reaching a yane but. will only transfuse if less than 10,000 (3) Hyponatremia Is this a current diagnosis for this admission?: Yes Plan: Stable (4) Constipation Qualifiers: Constipation type: unspecified constipation type Qualified Code(s): K59.00 - Constipation, unspecified Is this a current diagnosis for this admission?: Yes Plan: Resolved, patient had 2 good bowel movements. Continue bowel regimen. (5) Diabetes mellitus type 2 in nonobese Is this a current diagnosis for this admission?: Yes (6) Hypothyroidism Qualifiers: Hypothyroidism type: unspecified Qualified Code(s): E03.9 - Hypothyroidism, unspecified Is this a current diagnosis for this admission?: Yes (7) Pheochromocytoma Qualifiers: Laterality: left Qualified Code(s): D35.02 - Benign neoplasm of left adrenal gland Is this a current diagnosis for this admission?: Yes - Plan Summary Summary: . - Time Time Spent with patient: Less than 15 minutes
[2020-06-01] MEDS: ACETAMINOPHEN 325 MG TABLET PO PRN (21:25)
[2020-06-02] MEDS: ACETAMINOPHEN 325 MG TABLET PO PRN ×2 (03:14→08:53)
[2020-06-02 05:19] LABS: HEMATOCRIT 28.2 % (36.0-47.0); HEMOGLOBIN 9.7 g/dL (12.0-15.5); MEAN CORPUSCULAR HEMOGLOBIN 31.7 pg (27.0-33.4); MEAN CORPUSCULAR HGB CONC 34.4 g/dL (32.0-36.0); MEAN CORPUSCULAR VOLUME 92 fl (80-97); RED BLOOD COUNT 3.06 10^6/uL (3.72-5.28); RED CELL DISTRIBUTION WIDTH 13.3 % (11.5-14.0)
[2020-06-02 05:38] LABS: ANION GAP 5 (5-19); BLOOD UREA NITROGEN 14 mg/dL (7-20); CALCIUM 9.5 mg/dL (8.4-10.2); CARBON DIOXIDE 26 mmol/L (22-30); CHLORIDE 103 mmol/L (98-107); GLUCOSE 129 mg/dL (75-110); POTASSIUM 4.3 mmol/L (3.6-5.0)
[2020-06-02 05:39] LABS: PLATELET COUNT 26 10^3/uL (150-450)
[2020-06-02 05:43] LABS: ABSOLUTE LYMPHOCYTES# (MANUAL) 1.5 10^3/uL (0.5-4.7); ABSOLUTE MONOCYTES # (MANUAL) 0.9 10^3/uL (0.1-1.4); BAND NEUTROPHILS % (MANUAL) 4 % (3-5); BASOPHILS % (MANUAL) 1 % (0-2); EOSINOPHILS % (MANUAL) 0 % (0-6); LYMPHOCYTES % (MANUAL) 14 % (13-45); METAMYELOCYTES % (MANUAL) 1 % (0-1); MONOCYTES % (MANUAL) 8 % (3-13); SEGMENTED NEUTROPHILS % (MAN) 72 % (42-78); TOTAL CELLS COUNTED 100
[2020-06-02 05:44] LABS: HOWELL-JOLLY BODIES PRESENT; HYPOCHROMASIA SLIGHT; OVALOCYTES SLIGHT; PLATELET COMMENT DECREASED; PLATELET LARGE PRESENT; POIKILOCYTOSIS SLIGHT; POLYCHROMASIA SLIGHT
[2020-06-02] MEDS: LEVOTHYROXINE SODIUM 0.088 MG TABLET PO SCH (05:44)
[2020-06-02 05:51] LABS: WHITE BLOOD COUNT 10.7 10^3/uL (4.0-10.5)
[2020-06-02] MEDS: INSULIN REG, HUMAN 100 UNIT/ML 3 ML VIAL (PYX) SUBCUT SCH (08:23)
[2020-06-02] MEDS: METFORMIN HCL 500 MG TABLET PO SCH (08:27)
[2020-06-02] MEDS: SUCRALFATE 1 GM TABLET PO SCH (08:27)
[2020-06-02] MEDS: FAMOTIDINE 20 MG TABLET PO SCH (08:59)
[2020-06-02] MEDS: ASCORBIC ACID 500 MG TABLET PO SCH (08:59)
[2020-06-02] MEDS: MAGNESIUM OXIDE 400 MG TABLET PO SCH (09:00)
[2020-06-02] MEDS: POLYETHYLENE GLYCOL 3350 POWDER 17 GM/1 PACKET PO SCH (09:00)
[2020-06-02] MEDS: MULTIVITAMIN TABLET PO SCH (09:00)
[2020-06-02] MEDS: DOCUSATE SODIUM 100 MG CAPSULE PO SCH (09:00)
[2020-06-02] MEDS: PANTOPRAZOLE SODIUM 40 MG PACKET.DR PO SCH (09:01)
[2020-06-02] MEDS ORDERED: MORPHINE SULFATE IR 15 MG TABLET PO ONE (10:00)
[2020-06-02] MEDS ORDERED: LISINOPRIL 5 MG TABLET PO SCH (10:00)
--- NOTE | 2020-06-02 10:13 | PDOC DISCHARGE SUMMARY ---
Impression - Admit/DC Date/PCP Admission Date/Primary Care Provider: 05/25/20 00:19 BRIANDA HESS MD Discharge Date: 06/02/20 - Discharge Diagnosis (1) Neutropenic fever Is this a current diagnosis for this admission?: Yes (2) Pancytopenia Is this a current diagnosis for this admission?: Yes (3) Hyponatremia Is this a current diagnosis for this admission?: Yes (4) Constipation Is this a current diagnosis for this admission?: Yes (5) Diabetes mellitus type 2 in nonobese Is this a current diagnosis for this admission?: Yes (6) Hypothyroidism Is this a current diagnosis for this admission?: Yes (7) Pheochromocytoma Is this a current diagnosis for this admission?: Yes (8) Long-term memory impairment Is this a current diagnosis for this admission?: Yes (9) Hypertension Is this a current diagnosis for this admission?: Yes (10) Hypomagnesemia Is this a current diagnosis for this admission?: Yes - Assessment Summary: . - Additional Information Resuscitation Status: Full Code Discharge Diet: Diabetic Discharge Activity: Activity As Tolerated Referrals: BRIANDA HESS MD [Primary Care Provider] - Follow up as needed Prescriptions: Magnesium Oxide [Mag-Ox 400 mg Tablet] 400 mg PO BID 20 Days Polyethylene Glycol 3350 [Miralax Powder 17 gm/Packet] 17 gm PO DAILYP PRN #30 powd.pack PRN Reason: Lisinopril [Prinivil] 10 mg PO DAILY #30 Sennosides/Docusate Sodium [Senna Plus 8.6-50 mg Tablet] 2 each PO BID #120 tablet Home Medications: Calcium Carbonate/Vitamin D3 [Calcium 600-Vit D3 200 Tablet] 1 each PO DAILY 07/09/13 Fexofenadine HCl [Michelle] 180 mg PO DAILY 07/09/13 Multivitamin [Multi-Vitamin Daily] 1 each PO DAILY 07/09/13 Ascorbic Acid 500 mg PO DAILY 02/28/18 Dicyclomine HCl 20 mg PO QID 02/28/18 Ferrous Sulfate 325 mg PO DAILY 02/28/18 Pantoprazole Sodium [Protonix] 40 mg PO DAILY 02/28/18 Morphine Sulfate [Morphine Ir 15 mg Tablet] 15 mg PO Q6HP PRN 05/24/20 Simvastatin 5 mg PO DAILY 05/24/20 Buprenorphine [Butrans] 10 mcg TD SHAFFER@1000 05/25/20 Levothyroxine Sodium [Synthroid 0.088 mg Tablet] 0.088 mg PO DAILY 05/25/20 Metformin HCl [Metformin HCl ER] 1,000 mg PO Q12 05/25/20 Ondansetron HCl [Zofran 8 mg Tablet] 8 mg PO Q8HP PRN 05/25/20 Prochlorperazine Maleate [Compazine 10 mg Tablet] 20 mg PO Q6HP PRN 05/25/20 Sucralfate [Carafate 1 gm Tablet] 1 gm PO ACHS 05/25/20 Lisinopril [Prinivil] 10 mg PO DAILY #30 06/02/20 Magnesium Oxide [Mag-Ox 400 mg Tablet] 400 mg PO BID 20 Days 06/02/20 Polyethylene Glycol 3350 [Miralax Powder 17 gm/Packet] 17 gm PO DAILYP PRN #30 powd.pack 06/02/20 Sennosides/Docusate Sodium [Senna Plus 8.6-50 mg Tablet] 2 each PO BID #120 tabl et 06/02/20 History of Present Illiness History of Present Illness: According to admitting provider: ROBERTO LECHUGA is a 59 year old female who presented to the emergency room via EMS with a 3-day history of altered mental status. The patient is confused and unable to contribute reliable information to her medical history. Her sister related that she has been gradually becoming more confused over the course of the last 3 days. Her confusion has been accompanied by gradually worsening weakness and generalized malaise and has been associated with intermittent abdominal pains. Her sister denied other associated or accompanying signs and symptoms. The patient has pheochromocytoma and finished her most recent chemotherapy regiment 2 to 3 weeks ago and is scheduled for another round of chemotherapy given a on May 30. Upon EMS arrival they discovered the patient to have a temperature of 100.2 F, a systolic blood pressure in the 90s and a tachycardia. She was treated per sepsis protocol during her transport to the hospital. In the emergency room she was found to have a elevated lactic acid at 3.3 and was noted to have pancytopenia with a severe neutropenia. Patient was subsequently admitted in the [facility]. Hospital Course Hospital Course: Patient was admitted to the hospital for treatment of neutropenic fever. Her white blood cell count on admission was 8000 with absolute neutrophil count going as low as 0. She was also noted to be pancytopenic. This were all due to her chemotherapy which she had just received about 2 weeks prior to her presentation. She receives chemotherapy for pheochromocytoma. 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 Patient during this hospitalization, received 2 pheresis of platelets due to her platelets dropping down to 10,000. Her platelets continue to drop but seem to have reached a yane around 26,000. She has been evaluated by oncology who started patient on filgastrim for several days until her ANC improved over 1000 for 2 days after which she was stopped. Last WBC count is 10,700 today. Patient has received vancomycin and cefepime for her neutropenic fever throughout her hospitalization. Vancomycin was stopped a few days ago. Cefepime will be discontinued today and patient will not be discharged on any antibiotics as she has been afebrile for almost 6 days now and ANC is way over 1000. Blood cultures, chest x-ray, urinalysis and COVID-19 test were all negative. Patient was treated for constipation and is being discharged on docusate/senna twice daily as well as MiraLAX as needed. Her home pain regimen has been resumed. Her lisinopril increased to 10 mg daily due to hypertension. Placed on magnesium supplements. She will be following up with her coding machine operator/oncologist to have a repeat CBC done as well as to discuss resumption of treatment. I have called her sister and animal eviscerator Irish today and brought her up to speed about entire hospitalization as well as plans for discharge. She is appreciative and excited to have patient back today. Physical Exam Vital Signs: Temp Pulse Resp BP Pulse Ox 97.5 F 71 16 169/81 H 94 06/02/20 07:26 06/02/20 07:26 06/02/20 07:26 06/02/20 07:26 06/02/20 07:26 Intake & Output 06/01/20 06/02/20 06/03/20 06:59 06:59 06:59 Intake Total 2565 870 Output Total 2160 3090 Balance 405 -1580 Weight 70.3 kg 68.1 kg General appearance: PRESENT: no acute distress, cooperative Neck exam: ABSENT: JVD Respiratory exam: PRESENT: unlabored. ABSENT: accessory muscle use, retraction, tachypnea GI/Abdominal exam: PRESENT: mass - left paraumbilical, soft, tenderness. ABSENT: firm, guarding, rebound, rigid Neurological exam: PRESENT: alert, awake Results Laboratory Results: WBC 10.7 10^3/uL (4.0-10.5) H D 06/02/20 04:47 RBC 3.06 10^6/uL (3.72-5.28) L 06/02/20 04:47 Hgb 9.7 g/dL (12.0-15.5) L 06/02/20 04:47 Hct 28.2 % (36.0-47.0) L 06/02/20 04:47 MCV 92 fl (80-97) 06/02/20 04:47 MCH 31.7 pg (27.0-33.4) 06/02/20 04:47 MCHC 34.4 g/dL (32.0-36.0) 06/02/20 04:47 RDW 13.3 % (11.5-14.0) 06/02/20 04:47 Plt Count 26 10^3/uL (150-450) L* 06/02/20 04:47 Lymph % (Auto) Not Reportable 06/02/20 04:47 [place] % (Auto) Not Reportable 06/02/20 04:47 Eos % (Auto) Not Reportable 06/02/20 04:47 Baso % (Auto) Not Reportable 06/02/20 04:47 Absolute Neuts (auto) Not Reportable 06/02/20 04:47 Absolute Lymphs (auto) Not Reportable 06/02/20 04:47 Absolute Monos (auto) Not Reportable 06/02/20 04:47 Absolute Eos (auto) Not Reportable 06/02/20 04:47 Absolute Basos (auto) Not Reportable 06/02/20 04:47 Total Counted 100 06/02/20 04:47 Seg Neutrophils % Not Reportable 06/02/20 04:47 Seg Neuts % (Manual) 72 % (42-78) 06/02/20 04:47 Band Neutrophils % 4 % (3-5) 06/02/20 04:47 Lymphocytes % (Manual) 14 % (13-45) 06/02/20 04:47 Atypical Lymphs % 1 % (0) 05/31/20 11:05 Monocytes % (Manual) 8 % (3-13) 06/02/20 04:47 Eosinophils % (Manual) 0 % (0-6) 06/02/20 04:47 Basophils % (Manual) 1 % (0-2) 06/02/20 04:47 Metamyelocytes % 1 % (0-1) 06/02/20 04:47 Abs Neuts (Manual) 8.2 10^3/uL (1.7-8.2) 06/02/20 04:47 Abs Lymphs (Manual) 1.5 10^3/uL (0.5-4.7) 06/02/20 04:47 Abs Monocytes (Manual) 0.9 10^3/uL (0.1-1.4) 06/02/20 04:47 Absolute Eos (Manual) 0.0 10^3/uL (0.0-0.6) 06/02/20 04:47 Abs Basophils (Manual) 0.1 10^3/uL (0.0-0.2) 06/02/20 04:47 Toxic Granulation SLIGHT 05/30/20 08:56 [place]le Bodies PRESENT 05/30/20 08:56 Large Platelets PRESENT 06/02/20 04:47 Platelet Comment DECREASED 06/02/20 04:47 Polychromasia SLIGHT 06/02/20 04:47 Hypochromasia SLIGHT 06/02/20 04:47 Poikilocytosis SLIGHT 06/02/20 04:47 Tear Drop Cells SLIGHT 05/29/20 06:51 Ovalocytes SLIGHT 06/02/20 04:47 [place] Bodies PRESENT 06/02/20 04:47 [place] Cells SLIGHT 05/24/20 20:50 RBC Morph Comment NORMO-CYTIC/CHROMIC 06/01/20 03:55 PT 13.5 SEC (11.4-15.4) 05/26/20 04:29 INR 1.03 05/26/20 04:29 VBG pH 7.39 (7.30-7.42) 05/24/20 20:50 VBG pCO2 39.5 mmHg (35-63) 05/24/20 20:50 VBG HCO3 23.2 mmol/L (20-32) 05/24/20 20:50 VBG Base Excess -1.6 mmol/L 05/24/20 20:50 Sodium 134.0 mmol/L (137-145) L 06/02/20 04:47 Potassium 4.3 mmol/L (3.6-5.0) 06/02/20 04:47 Chloride 103 mmol/L (98-107) 06/02/20 04:47 Carbon Dioxide 26 mmol/L (22-30) 06/02/20 04:47 Anion Gap 5 (5-19) 06/02/20 04:47 BUN 14 mg/dL (7-20) 06/02/20 04:47 Creatinine 0.62 mg/dL (0.52-1.25) 06/02/20 04:47 Est GFR ( Amer) > 60 (>60) 06/02/20 04:47 Est GFR (MDRD) Non-Af > 60 (>60) 06/02/20 04:47 Glucose 129 mg/dL (75-110) H 06/02/20 04:47 POC Glucose 129 mg/dL (70-110) H 06/02/20 07:28 Lactic Acid 1.3 mmol/L (0.7-2.1) 05/25/20 07:10 Calcium 9.5 mg/dL (8.4-10.2) 06/02/20 04:47 Magnesium 1.5 mg/dL (1.6-2.3) L 06/02/20 04:47 Total Bilirubin 1.2 mg/dL (0.2-1.3) 05/26/20 04:29 Direct Bilirubin 0.3 mg/dL (0.0-0.4) 05/26/20 04:29 Neonat Total Bilirubin Not Reportable 05/26/20 04:29 Neonat Direct Bilirubin Not Reportable 05/26/20 04:29 Neonat Indirect Bili Not Reportable 05/26/20 04:29 AST 26 U/L (14-36) 05/26/20 04:29 ALT 37 U/L (<35) H 05/26/20 04:29 Alkaline Phosphatase 108 U/L (38-126) 05/26/20 04:29 Total Protein 6.1 g/dL (6.3-8.2) L 05/26/20 04:29 Albumin 3.0 g/dL (3.5-5.0) L 05/26/20 04:29 TSH 0.32 uIU/mL (0.47-4.68) L 05/26/20 04:29 Free T3 pg/mL 1.57 pg/mL (2.77-5.27) L 05/25/20 07:10 Urine Color YELLOW 05/25/20 04:35 Urine Appearance CLEAR 05/25/20 04:35 Urine pH 5.0 (5.0-9.0) 05/25/20 04:35 Ur Specific [place] 1.028 05/25/20 04:35 Urine Protein 30 mg/dL (NEGATIVE) H 05/25/20 04:35 Urine Glucose (UA) NEGATIVE mg/dL (NEGATIVE) 05/25/20 04:35 Urine Ketones NEGATIVE mg/dL (NEGATIVE) 05/25/20 04:35 Urine Blood NEGATIVE (NEGATIVE) 05/25/20 04:35 Urine Nitrite (Reflex) NEGATIVE (NEGATIVE) 05/25/20 04:35 Urine Bilirubin NEGATIVE (NEGATIVE) 05/25/20 04:35 Urine Urobilinogen NEGATIVE mg/dL (<2.0) 05/25/20 04:35 Leukocyte Esterase Rfl NEGATIVE (NEGATIVE) 05/25/20 04:35 Urine RBC (Auto) 1 /HPF 05/25/20 04:35 U Hyaline Cast (Auto) 3 /LPF 05/25/20 04:35 Urine Bacteria (Auto) TRACE /HPF 05/25/20 04:35 Urine WBC (Reflex) 1 /HPF 05/25/20 04:35 Squamous Epi Cells Auto 1 /HPF 05/25/20 04:35 Urine Mucus (Auto) RARE /LPF 05/25/20 04:35 Urine Ascorbic Acid NEGATIVE (NEGATIVE) 05/25/20 04:35 Time Trough Drawn 1700 06/01/20 17:00 Vancomycin Trough 35.0 ug/mL (5.0-20.0) H 06/01/20 17:00 SARS-CoV-2 (PCR) NEGATIVE (NEGATIVE) 05/24/20 23:27 Slides for Path Review PATHOLOGIST REVIEWED 05/24/20 20:50 Blood Type O POSITIVE 05/24/20 22:28 Blood Type Confirm O POSITIVE 05/24/20 22:28 Antibody Screen NEGATIVE 05/24/20 22:28 Crossmatch See Detail 05/24/20 22:28 Impressions: Abdomen/Pelvis CT 05/24/20 22:14 IMPRESSION: Constipation with extensive left upper quadrant postoperative changes. No convincing abscess. Plan Time Spent: Greater than 30 Minutes Stroke Is this a Stroke Patient?: No Acute Heart Failure - Is this a Heart Failure Patient?: No
[2020-06-02 10:29] VITALS: BP 158/76
== END 2020-06-02 14:00 | disposition home health service (06) | DRG 808 ==
LOC: ER 20:45 → EH 05-25 00:19 → 3S 05-25 03:00
PROVIDERS: ADMIT Emergency Medicine; ATTEND Internal Medicine
PROC: 30233R1 Transfusion of Nonautologous Platelets into Peripheral Vein, Percutaneous Approach (ICD-10-PCS; principal; 2020-05-25)
PROC: 30233N1 Transfusion of Nonautologous Red Blood Cells into Peripheral Vein, Percutaneous Approach (ICD-10-PCS; 2020-05-25)
DX: D70.1 Agranulocytosis secondary to cancer chemotherapy (principal); A41.9 Sepsis, unspecified organism; E87.1 Hypo-osmolality and hyponatremia; D61.818 Other pancytopenia; D35.02 Benign neoplasm of left adrenal gland; R50.81 Fever presenting with conditions classified elsewhere; T45.1X5A Adverse effect of antineoplastic and immunosuppressive drugs, initial encounter; R41.82 Altered mental status, unspecified; E78.00 Pure hypercholesterolemia, unspecified; E11.9 Type 2 diabetes mellitus without complications; E03.9 Hypothyroidism, unspecified; I10 Essential (primary) hypertension; K21.9 Gastro-esophageal reflux disease without esophagitis; E83.42 Hypomagnesemia; G40.909 Epilepsy, unspecified, not intractable, without status epilepticus; K59.03 Drug induced constipation; T40.2X5A Adverse effect of other opioids, initial encounter; Y92.538 Other ambulatory health services establishments as the place of occurrence of the external cause; Y92.018 Other place in single-family (private) house as the place of occurrence of the external cause; Z88.6 Allergy status to analgesic agent; Z88.1 Allergy status to other antibiotic agents; Z88.5 Allergy status to narcotic agent; Z03.818 Encounter for observation for suspected exposure to other biological agents ruled out; Z90.5 Acquired absence of kidney; Z79.84 Long term (current) use of oral hypoglycemic drugs; Z79.891 Long term (current) use of opiate analgesic; Z79.899 Other long term (current) drug therapy
CPT/HCPCS: 36415; 36430; 71045; 74177; 80048; 80053; 80202; 81001; 82565; 82803; 82962; 83605; 83735; 84443; 84481; 85025; 85027; 85610; 86850; 86900; 86901; 86920; 87040; 87635; 93005; 93010; 96365; 96368; 99285; C9803; J0692; J1815; J2020; J3370; J3475; J3490; J7030; J7060; J7120; P9016; P9035; Q5110